=== PATIENT | female | born 1965 | race Caucasian/White ===

== ENCOUNTER 2017-12-13 18:10 | Emergency (ER) | END 2017-12-13 20:50 | disposition home or self-care (01) | DX: M54.41 Lumbago with sciatica, right side (principal); M54.42 Lumbago with sciatica, left side; F17.200 Nicotine dependence, unspecified, uncomplicated | CPT/HCPCS: 96372; 99283; J1100; J1885; J2360 ==

== ENCOUNTER 2018-01-01 13:47 | Emergency (ER) | payer BC ==
[~2018-01-01 13:47] MED LIST: DICL50TA PO; MEDR4PAK PO; ROBA750T PO
[2018-01-01 13:52] VITALS: BP 132/91; PULSE 92; RESP 19; TEMP 98.6; O2SAT 96
[2018-01-01] MEDS ORDERED: TRAM50TA PO (14:05)
[2018-01-01] MEDS ORDERED: SERO300T PO (14:06)
[2018-01-01] MEDS ORDERED: ROSU1TAB4 PO (14:06)
[2018-01-01] MEDS ORDERED: TRAZ50TA12 PO (14:06)
[2018-01-01] MEDS ORDERED: GABA100C4 PO (14:09)
--- NOTE | 2018-01-01 14:27 | PD ---
HPI Chief Complaint: Injury Time Seen by Provider: 14:02 Travel History International Travel<30 days: No Contact w/Intl Traveler<30days: No Traveled to known affect area: No History of Present Illness HPI 52-year-old female presents emergency department with right dorsal foot pain. Patient reportedly fell 2 days ago injuring her foot. She states the pain is progressively worsening and she is unable to ambulate without difficulty. Patient denies numbness or tingling. There are no open wounds or abrasions. Pain is 9 out of 10. Patient has been taking tramadol which she was prescribed earlier this month without much relief. She denies any other injury. She is allergic to codeine and sulfa. PFSH Past Medical History Arthritis: No Asthma: No Autoimmune Disease: No Bipolar Disorder: Yes Anxiety: Yes Depression: Yes Heart Rhythm Problems: No Cardiovascular Problems: No (See EMR) High Cholesterol: No Chemotherapy: No Chest Pain: No Congestive Heart Failure: No COPD: No Cerebrovascular Accident: No Diabetes: No (See EMR) Diminished Hearing: No Endocrine: Yes GERD: No Genitourinary: No Headaches: No (See EMR) Hypertension: Yes Immune Disorder: No Kidney Stones: No Musculoskeletal: No Neurologic: No Psychiatric: Yes (depression, alcohol abuse) Reproductive: No Respiratory: No Migraines: No Radiation Therapy: No Renal Failure: Yes Sickle Cell Disease: No Sleep Apnea: No Thyroid Disease: Yes Triglycerides - High: Yes Ulcer: No : 3 Para: 2 : 1 Past Surgical History Abdominal Surgery: No AICD: No Arteriovenous Shunt: No Cardiac Surgery: No Section: Yes Ear Surgery: No Endocrine Surgery: Yes (Hypothyroidism) Eye Surgery: No Genitourinary Surgery: No Gynecologic Surgery: No Insulin Pump: No Joint Replacement: No Oral Surgery: No Pacemaker: No Thoracic Surgery: No Tonsillectomy: Yes Social History Alcohol Use: Yes (up to 24pk beer daily) Tobacco Use: Yes (1 07/31 ppd) Substance Use: No Allergies-Medications (Allergen,Severity, Reaction): Coded Allergies: Sulfa (Sulfonamide Antibiotics) (Unverified Allergy, Severe, 01/01/18) codeine (Unverified Allergy, Severe, Itching, 01/01/18) Reported Meds & Prescriptions Reported Meds & Active Scripts Active Reported Gabapentin 100 Mg Cap 100 Mg PO TID Trazodone (Trazodone HCl) 50 Mg Tab 50 Mg PO HS Rosuvastatin (Rosuvastatin Calcium) 5 Mg Tab 5 Mg PO DAILY Seroquel (Quetiapine Fumarate) 300 Mg Tab 300 Mg PO DAILY Tramadol (Tramadol HCl) 50 Mg Tab 50 Mg PO Q4H PRN Review of Systems Except as stated in HPI: all other systems reviewed are Neg General / Constitutional: No: Fever Eyes: No: Visual changes HENT: No: Headaches Cardiovascular: No: Chest Pain or Discomfort Respiratory: No: Shortness of Breath Gastrointestinal: No: Abdominal Pain Genitourinary: No: Dysuria Musculoskeletal: Positive: Arthralgias, Limited ROM, Pain (See history of present illness) Skin: No Rash Neurologic: No: Weakness Psychiatric: No: Depression Endocrine: No: Polydipsia Hematologic/Lymphatic: No: Easy Bruising Physical Exam Narrative GENERAL: Patient appears in no acute distress. SKIN: Warm and dry. Normal color. Normal turgor. No ecchymosis. No open wound. No abrasions. HEAD: Atraumatic. Normocephalic. EYES: Pupils equal and round. No scleral icterus. No injection or drainage. ENT: No nasal bleeding or discharge. Mucous membranes pink and moist. Pharynx is clear. Airway is patent. NECK: Trachea midline. Supple. CARDIOVASCULAR: Regular rate and rhythm. RESPIRATORY: No accessory muscle use. Clear to auscultation. Breath sounds equal bilaterally. MUSCULOSKELETAL: Extremities without clubbing, cyanosis, or edema. No obvious deformities. Patient's right foot appears unremarkable. Patient complains of pain with palpation to the dorsal proximal foot, as well as with plantar flexion and dorsiflexion. Neurovascular exam is unremarkable. The right ankle is unremarkable. She has no significant calf pain with palpation. NEUROLOGICAL: Awake and alert. No obvious cranial nerve deficits. Motor grossly within normal limits. Five out of 5 muscle strength in the arms and legs. Normal speech. PSYCHIATRIC: Appropriate mood and affect; insight and judgment normal. Data Data Last Documented VS Vital Signs Date Time Temp Pulse Resp B/P (MAP) Pulse Ox O2 Delivery O2 Flow Rate FiO2 01/01/18 13:52 98.6 92 19 132/91 (105) 96 Orders Orders Foot, Complete ([id number]) (01/01/18 14:05) Ice/Cold Pack (01/01/18 14:05) Crutches (01/01/18 14:05) MDM Medical Decision Making Medical Screen Exam Complete: Yes Emergency Medical Condition: Yes Medical Record Reviewed: Yes Differential Diagnosis Right foot pain. Tenosynovitis. Fracture. Narrative Course X-ray of the right foot and ankle is obtained. Condition: Stable Ilya Waller Jan 01, 2018 14:27
--- NOTE | 2018-01-01 15:31 | RADRPT ---
EXAM DATE: 01/01/2018 3:11 PM EDT AGE/SEX: 52 years / Female INDICATIONS: Right foot pain after fall. CLINICAL DATA: This is the patient's initial encounter. Patient reports that signs and symptoms have been present for 1 day and indicates a pain score of 8/10. MEDICAL/SURGICAL HISTORY: None. None. COMPARISON: No prior [facility] exams available for comparison. FINDINGS: Bony structures are intact and in normal alignment. Osseous density is normal. Soft tissues are unre markable. No radiopaque foreign bodies seen. CONCLUSION: Negative examination Electronically signed by: Jared Gill MD 01/01/2018 3:30 PM EDT
[2018-01-01] MEDS ORDERED: MELO7.5T27 PO (15:43)
--- NOTE | 2018-01-01 15:48 | PD ---
Physical Exam Date Seen by Provider: Jan 01, 2018 Time Seen by Provider: 15:47 Narrative X-ray shows no acute process. Patient will be placed in crutches given meloxicam 7.5 mg twice daily #60. Patient to follow-up with her primary care physician tomorrow as scheduled. Data Data Last Documented VS Vital Signs Date Time Temp Pulse Resp B/P (MAP) Pulse Ox O2 Delivery O2 Flow Rate FiO2 01/01/18 13:52 98.6 92 19 132/91 (105) 96 Orders Orders Foot, Complete ([id number]) (01/01/18 14:05) Ice/Cold Pack (01/01/18 14:05) Crutches (01/01/18 14:05) Ed Discharge Order (01/01/18 15:45) [facility] Medical Record Reviewed: Yes Supervised Visit with DINESH: Yes Narrative Course X-ray shows no acute process. Patient will be placed in crutches given meloxicam 7.5 mg twice daily #60. Patient to follow-up with her primary care physician tomorrow as scheduled. Diagnosis Primary Impression: Tenosynovitis of foot and ankle Patient Instructions: Crutch Instructions (ED), General Instructions, Lower Extremity Tenosynovitis (DC) Additional Instruction: X-ray shows no acute process. Patient will be placed in crutches given meloxicam 7.5 mg twice daily #60. Patient to follow-up with her primary care physician tomorrow as scheduled. Med/Other Pt SpecificInfo: Prescription(s) given Scripts Meloxicam (Meloxicam) 7.5 Mg Tab 7.5 MG PO BID for Arthritis Pain, #60 TAB 0 Refills Prov: Jocelyne Palomo MD 01/01/18 Disposition: 01 DISCHARGE HOME Condition: Stable Ilya Waller Jan 01, 2018 15:48
== END 2018-01-01 16:20 | disposition home or self-care (01) ==
LOC: NEPK 13:47
DX: S93.601A Unspecified sprain of right foot, initial encounter (principal); W19.XXXA Unspecified fall, initial encounter; F31.9 Bipolar disorder, unspecified; F41.9 Anxiety disorder, unspecified; E03.9 Hypothyroidism, unspecified; I12.9 Hypertensive chronic kidney disease with stage 1 through stage 4 chronic kidney disease, or unspecified chronic kidney disease; N18.9 Chronic kidney disease, unspecified; F17.200 Nicotine dependence, unspecified, uncomplicated
CPT/HCPCS: 73630; 99283; E0113

== ENCOUNTER 2018-03-05 17:30 | Inpatient (IN) ==
[~2018-03-05 17:30] MED LIST changes: -DICL50TA PO; +Lidocaine PF 1% Inj 5 ML Syringe INFILTRATN ONE; -MEDR4PAK PO; -ROBA750T PO
[2018-03-05] MEDS ORDERED: Morphine Inj 4 MG/ML Vial IV.PUSH ONE (20:39)
[2018-03-05 20:59] LABS: Baso % (Auto) 0.3 % (0.0-2.0); Eos % (Auto) 0.1 % (0.0-4.0); Hematocrit 34.9 % (35.0-46.0); Hemoglobin 11.6 gm/dL (11.6-15.3); Lymph # (Auto) 0.7 th/mm3 (1.0-4.8); Lymph % (Auto) 12.3 % (9.0-44.0); Mean Corpuscular HGB Conc 33.1 % (32.0-36.0); Mean Corpuscular Hemoglobin 32.3 pg (27.0-34.0); Mean Corpuscular Volume 97.5 fL (80.0-100.0); Mono # (Auto) 0.5 th/mm3 (0.0-0.9); Mono % (Auto) 8.4 % (0.0-8.0); Neut # (Auto) 4.5 th/mm3 (1.8-7.7); Neut % (Auto) 78.9 % (16.0-70.0); Platelet Count 242 th/mm3 (150-450); Red Blood Count 3.58 mil/mm3 (4.00-5.30); White Blood Count 5.7 th/mm3 (4.0-11.0)
--- NOTE | 2018-03-05 21:01 | ED ---
HPI General Chief complaint: Extremity Injury, Lower Stated complaint: Sent by Dr Monte/Patient states broken leg Time Seen by Provider: 03/05/18 20:22 History of Present Illness HPI narrative: 53-year-old female presents to the emergency department sent by her orthopedic surgeon to be admitted for surgery tomorrow. Patient was seen in the ED 02/26/18 status post fall and diagnosed with a left tibia fracture. She was splinted and discharged at that time. She followed up in office with Dr. Monte today and he replaced her splint and instructed her to come to the ED for admission for surgery tomorrow. She complains of pain at the site of the fracture. She also complains of sciatic pain down her right leg which is chronic. She has not taken anything for pain so far today. She denies any chest pain, shortness of breath, abdominal pain, nausea, vomiting, diarrhea, numbness or tingling, weakness. No other complaints. PCP Dr. Win. Related Data Home Medications Medication Instructions Recorded Confirmed citalopram [Celexa] 20 mg PO DAILY 02/26/18 03/05/18 escitalopram oxalate [Lexapro] 20 mg PO DAILY 02/26/18 03/05/18 gabapentin 300 mg PO TID 02/26/18 03/05/18 quetiapine [Seroquel XR] 300 mg PO HS 02/26/18 03/05/18 temazepam 30 mg PO HS 02/26/18 03/05/18 tramadol 50 mg PO TID PRN 02/26/18 03/05/18 trazodone 50 mg PO DAILY 02/26/18 03/05/18 hydroxyzine pamoate 50 mg PO TID-QID PRN 03/05/18 03/05/18 rosuvastatin 20 mg PO DAILY 03/05/18 03/05/18 thyroid (pork) [[employer] Thyroid] 60 mg PO DAILY 03/05/18 03/05/18 Previous Rx's Medication Instructions Recorded walker #1 each 02/26/18 walker #1 each 02/26/18 Allergies Allergy/AdvReac Type Severity Reaction Status Date / Time codeine Allergy Severe Itching Unverified 01/01/18 14:02 meloxicam Allergy Unknown Itching, Verified 02/26/18 15:23 Generalized Sulfa (Sulfonamide Allergy Unknown Itching Unverified 02/26/18 15:23 Antibiotics) Review of Systems ROS: all other systems reviewed are negative [facility] Medical History Medical History Bipolar 1 disorder (Acute) Depression (Acute) PTSD (post-traumatic stress disorder) (Acute) Surgical History Surgical History History of (Acute) Social History Social History Substance History: No History of Abuse Second Hand Smoke Exposure: Yes Smoking Status: Current every day smoker Tobacco Type: Cigarettes How Often Do You Have a Drink Containing Alcohol: 2 to 3 times a week Recent Travel in [facility] [[email or web address] within the Last 8 Weeks: No Recent Out of Country Travel within the Last 8 Weeks: No Immunization History Tetanus Immunization: Unsure Exam Narrative Exam Narrative: GENERAL: Well-nourished and well-developed pleasant patient in no acute distress who is nontoxic appearing. SKIN: Warm and dry. HEAD: Normocephalic and atraumatic. EYES: No injection, drainage, or hyphema noted. PERRLA. EOMI. ENT: No nasal drainage noted. Oropharynx is clear and the TMs are normal with good landmarks. NECK: Supple and the trachea is midline. CARDIOVASCULAR: Regular rate and rhythm. RESPIRATORY: Breath sounds are equal bilaterally with no accessory muscle use, wheezing, rhonchi, or crackles. GASTROINTESTINAL: Abdomen is soft, non-tender, and nondistended. No hepatosplenomegaly. MUSCULOSKELETAL: Left leg splint in place. No obvious deformities, swelling, cyanosis, or ecchymosis is present throughout the upper and lower extremities. Patient has full range of motion in all other extremities without any signs of neurovascular compromise. Distal pulses are 2+ throughout. NEUROLOGICAL: Awake, alert, and oriented. Normal speech and gait. Cranial nerves are grossly intact. Course Initial Documented Vital Signs Temperature 98.7 F 03/05/18 17:48 Pulse Rate 95 H 03/05/18 17:48 Respiratory Rate 20 03/05/18 17:48 Blood Pressure 135/75 03/05/18 17:48 Pulse Oximetry 97 03/05/18 17:48 Last Documented Vital Signs Temperature 98.7 F 03/05/18 17:48 Pulse Rate 80 03/05/18 20:06 Respiratory Rate 20 03/05/18 20:06 Blood Pressure 126/72 03/05/18 20:06 Pulse Oximetry 94 L 03/05/18 20:06 Medical Decision Making MDM Narrative Medical decision making narrative: 53-year-old female presents to the emergency department at the instruction of her orthopedic surgeon. She was sent here for admission to have surgery on her left tibia fracture tomorrow. IV access is obtained, labs have been drawn and sent. Patient is placed on cardiac telemetry and pulse oximetry monitoring. Patient is administered morphine 4 mg IV and Zofran 4 mg IV. I spoke with Dr. Win who agrees to accept patient to his service. Labs show mild hypokalemia, 20 mEq orally ordered to replace. Chest x-ray shows right lower lobe pulmonary opacity, patient has no clinical evidence of pneumonia. EKG shows sinus rhythm with no ST elevations or depressions. Differential Diagnosis Differential Diagnosis: Fracture versus sprain versus contusion Lab Data Result diagrams: 03/05/18 20:30 03/05/18 20:30 Lab Results 03/05/18 03/05/18 03/05/18 Range/Units 20:30 20:30 20:30 WBC 5.7 (4.0-11.0) th/mm3 RBC 3.58 L (4.00-5.30) mil/mm3 Hgb 11.6 (11.6-15.3) gm/dL Hct 34.9 L (35.0-46.0) % MCV 97.5 (80.0-100.0) fL MCH 32.3 (27.0-34.0) pg MCHC 33.1 (32.0-36.0) % RDW 15.0 (11.6-17.2) % Plt Count 242 (150-450) th/mm3 MPV 9.0 (7.0-11.0) fL Neut % (Auto) 78.9 H (16.0-70.0) % Lymph % (Auto) 12.3 (9.0-44.0) % [place] % (Auto) 8.4 H (0.0-8.0) % Eos % (Auto) 0.1 (0.0-4.0) % Baso % (Auto) 0.3 (0.0-2.0) % Neut # (Auto) 4.5 (1.8-7.7) th/mm3 Lymph # (Auto) 0.7 L (1.0-4.8) th/mm3 [place] # (Auto) 0.5 (0.0-0.9) th/mm3 Eos # (Auto) 0.0 (0.0-0.4) th/mm3 Baso # (Auto) 0.0 (0.0-0.2) th/mm3 WBC Differential . Differential Comment Auto diff final PT 9.9 (9.8-11.6) sec INR 1.0 Ratio APTT (24.3-30.1) sec Sodium 140 (136-145) meq/L Potassium 3.1 L (3.5-5.1) meq/L Chloride 100 (98-107) meq/L Carbon Dioxide 32.1 H (21.0-32.0) meq/L Anion Gap 8 (5-15) meq/L BUN 2 L (7-18) mg/dL Creatinine 0.63 (0.50-1.00) mg/dL Estimated GFR Greater than 89 (>89) mL/min Random Glucose 93 (74-106) mg/dL Calcium 9.2 (8.5-10.1) mg/dL Total Bilirubin 0.4 (0.2-1.0) mg/dL AST 51 H (15-37) U/L ALT 31 (10-53) U/L Alkaline Phosphatase 110 (45-117) U/L Total Protein 6.7 (6.4-8.2) g/dL Albumin 3.1 L (3.4-5.0) g/dL /02/13 Range/Units 20:30 WBC (4.0-11.0) th/mm3 RBC (4.00-5.30) mil/mm3 Hgb (11.6-15.3) gm/dL Hct (35.0-46.0) % MCV (80.0-100.0) fL MCH (27.0-34.0) pg MCHC (32.0-36.0) % RDW (11.6-17.2) % Plt Count (150-450) th/mm3 MPV (7.0-11.0) fL Neut % (Auto) (16.0-70.0) % Lymph % (Auto) (9.0-44.0) % [place] % (Auto) (0.0-8.0) % Eos % (Auto) (0.0-4.0) % Baso % (Auto) (0.0-2.0) % Neut # (Auto) (1.8-7.7) th/mm3 Lymph # (Auto) (1.0-4.8) th/mm3 [place] # (Auto) (0.0-0.9) th/mm3 Eos # (Auto) (0.0-0.4) th/mm3 Baso # (Auto) (0.0-0.2) th/mm3 WBC Differential Differential Comment PT (9.8-11.6) sec INR Ratio APTT 25.7 (24.3-30.1) sec Sodium (136-145) meq/L Potassium (3.5-5.1) meq/L Chloride (98-107) meq/L Carbon Dioxide (21.0-32.0) meq/L Anion Gap (5-15) meq/L BUN (7-18) mg/dL Creatinine (0.50-1.00) mg/dL Estimated GFR (>89) mL/min Random Glucose (74-106) mg/dL Calcium (8.5-10.1) mg/dL Total Bilirubin (0.2-1.0) mg/dL AST (15-37) U/L ALT (10-53) U/L Alkaline Phosphatase (45-117) U/L Total Protein (6.4-8.2) g/dL Albumin (3.4-5.0) g/dL Imaging Data Radiologist's impression: Chest X-Ray 03/05/18 20:39 CONCLUSION: Right lower lobe pulmonary opacity which may represent pneumonia in the proper clinical setting. Mass not excludable. CT of the chest, preferably with intravenous contrast is recommended. Discharge Plan Discharge Disposition Patient Disposition: 30 Still Patient Discharge Details Diagnosis: Closed tibia fracture Physicians Team ED Provider: SHELLEY Mei ED Midlevel Provider: Renu Marley Primary Care Provider: Flavio Win Attending Provider: Flavio Win Status ED Status: Admitted Patient
[2018-03-05 21:06] LABS: Prothrombin Time 9.9 sec (9.8-11.6)
--- NOTE | 2018-03-05 21:13 | XR ---
EXAM DATE: 03/05/2018 9:00 PM EDT AGE/SEX: 53 years / Female INDICATIONS: Evaluate for pneumothorax, pneumonia or communicable diseases. Pre-op for left tibia champagne rgery. CLINICAL DATA: This is the patient's initial encounter. Patient reports that signs and symptoms have been present for 1 day and indicates a pain score of 0/10. MEDICAL/SURGICAL HISTORY: None. None. COMPARISON: No prior exams available for comparison. FINDINGS: Focal pulmonary opacity seen right lung base, probably in the lower lobe and most likely infiltrate. Lungs otherwise appear clear. No pleural effusion. No pneumothorax. Heart size normal. CONCLUSION: Right lower lobe pulmonary opacity which may represent pneumonia in the proper clinical setting. Mass not excludable. CT of the chest, preferably with intravenous contrast is recommended. Electronically signed by: Bonifacio Nguyen MD 03/05/2018 9:12 PM EDT
[2018-03-05 21:15] LABS: Alanine Aminotransferase 31 U/L (10-53); Albumin 3.1 g/dL (3.4-5.0); Anion Gap 8 meq/L (5-15); Aspartate Aminotransferase 51 U/L (15-37); Blood Urea Nitrogen 2 mg/dL (7-18); Calcium 9.2 mg/dL (8.5-10.1); Carbon Dioxide 32.1 meq/L (21.0-32.0); Chloride 100 meq/L (98-107); Glomerular Filtration Rate Greater Than 89 mL/min (>89); Glucose,Random 93 mg/dL (74-106); Potassium 3.1 meq/L (3.5-5.1); Sodium 140 meq/L (136-145)
[2018-03-05 21:18] LABS: Alkaline Phosphatase 110 U/L (45-117); Total Protein 6.7 g/dL (6.4-8.2)
[2018-03-05 22:00] LABS: Amorphous Sediment,Urine Rare /hpf; Bacteria,Urine Few /hpf; Bilirubin,Urine Negative (Negative); Clarity,Urine Hazy (Clear); Color,Urine Yellow (Yellw/Straw); Glucose,Urine (UA) Negative (Negative); Leukocyte Esterase,Urine Large (Negative); Nitrite,Urine Negative (Negative); Specific Gravity,Urine 1.001 (1.002-1.035); Squamous Epithelial Cell,Urine 1 /hpf (0-5)
[2018-03-05] MEDS: Potassium Bicarbonate 25 MEQ Effervescent Tablet PO SCH (23:33)
--- NOTE | 2018-03-06 00:08 | CT ---
EXAM DATE: 03/05/2018 11:59 PM EDT AGE/SEX: 53 years / Female INDICATIONS: Abnormal chest x-ray. CLINICAL DATA: This is the patient's initial encounter. Patient reports that signs and symptoms have been present for 1 day and indicates a pain score of 0/10. MEDICAL/SURGICAL HISTORY: None. None. RADIATION DOSE: 7.31 CTDI (mGy) COMPARISON: C, CHEST 1V SINGLE AP, 03/05/2018. . TECHNIQUE: Multiple contiguous axial images were obtained through the chest during bolus infusion of 70 ml Omnipaque 350 (iohexol) nonionic water-soluble contrast as a single exam dose. Images were obtained in suspended respiration using multiple row detector helical technique. Using automated exp osure control and adjustment of the mA and/or kV according to patient size, radiation dose was kept a s low as reasonably achievable to obtain optimal diagnostic quality images. DICOM format image data is available electronically for review and comparison. FINDINGS: There is no adenopathy or aneurysm. No pleural or pericardial effusions are seen. The adrenal glands are normal in appearance. The osseous structures are intact. Review of lung windows demonstrate perip heral consolidative opacity in the right lower lobe with air bronchogram formation. Part of this opac ity represents an area of atelectasis. Mild dependent atelectasis at the left lung base is also seen. CONCLUSION: 1. Right lower lobe consolidation and atelectasis. No obvious mass. 2. Follow-up CT examination in 6 months is recommended to ensure resolution of this finding. Electronically signed by: Lázaro Webster MD 03/06/2018 12:06 AM EDT
--- NOTE | 2018-03-06 07:17 | P.HPFP ---
History of Present Illness Service: family medicine Primary Care Physician: Flavio Win DO History of Present Illness: Sent to [facility] from ortho for fractured Tibia - Diagnosis (1) Closed tibia fracture (2) Pneumonia (3) Tobacco abuse (4) HLD (hyperlipidemia) (5) Hypothyroid Inpatient Certification: I certify that the inpatient services were ordered in accordance with Medicare regulations governing the order. This includes certification that hospital inpatient services are reasonable and necessary and in the case of services not specified as inpatient-only under 42 CFR 419.22(n), that they are appropriately provided as inpatient services in accordance to with the 2-midnight benchmark under 43 CFR 412.3(e) 3 Estimated Total Length of Stay (Days): 3 Plans for Post Hospital Care: Home [facility] - History History Provided By: Patient - Medical History Medical History: Medical History (Last Updated 02/26/18 @ 13:48 by Evelyne Guerrero) Bipolar 1 disorder Depression PTSD (post-traumatic stress disorder) - Surgical History Surgical History: Surgical History (Last Updated 02/26/18 @ 13:48 by Evelyne Guerrero) History of - Tobacco History Second Hand Smoke Exposure: Yes Tobacco Use In Past 30 Days: Yes Smoking Status: Current every day smoker Tobacco Type: Cigarettes - Alcohol History How Often Do You Have a Drink Containing Alcohol: 2 to 3 times a week - Substance Use History Substance History: No History of Abuse - Travel History Recent Travel in the [place] Within the Last 8 Weeks: No Recent Travel Out of the Country Within the Last 8 Weeks: No - Immunization History Tetanus Immunization: Unsure Hx Influenza Vaccine This Season: No Medications and Allergies Active Medications: Active Medications Albuterol (Duoneb Neb (Abhishek)) 1 ampul NEB Q6HR NEB ABHISHEK Last Admin: 03/06/18 03:40 Dose: 1 ampul Atorvastatin Calcium (Lipitor) 40 mg PO DAILY ABHISHEK Citalopram Hydrobromide (Celexa) 20 mg PO DAILY ABHISHEK Gabapentin (Neurontin) 300 mg PO TID ABHISHEK Ceftriaxone Sodium 1,000 mg/ (Sodium Chloride) 100 mls @ 200 mls/hr IV.SIG Q24H ABHISHEK Last Infusion: 03/06/18 03:46 Dose: Infused Potassium Bicarbonate (Effer-K) 50 meq PO DAILY ABHISHEK Last Admin: 03/05/18 23:33 Dose: 50 meq Quetiapine Fumarate (Seroquel) 300 mg PO HS ABHISHEK Temazepam (Restoril) 30 mg PO HS ABHISHEK Thyroid ([place] Thyroid) 60 mg PO DAILY ABHISHEK Tramadol HCl (Ultram) 50 mg PO TID PRN PRN Reason: PAIN SCALE 1 - 10 Last Admin: 03/05/18 23:32 Dose: 50 mg Allergies Allergy/AdvReac Type Severity Reaction Status Date / Time codeine Allergy Severe Itching Verified 03/05/18 23:32 meloxicam Allergy Unknown Itching, Verified 02/26/18 15:23 Generalized Sulfa (Sulfonamide Allergy Unknown Itching Verified 03/05/18 23:32 Antibiotics) Home Medications Medication Instructions Recorded Confirmed Type citalopram [Celexa] 20 mg PO DAILY 02/26/18 03/05/18 History escitalopram oxalate [Lexapro] 20 mg PO DAILY 02/26/18 03/05/18 History gabapentin 300 mg PO TID 02/26/18 03/05/18 History quetiapine [Seroquel XR] 300 mg PO HS 02/26/18 03/05/18 History temazepam 30 mg PO HS 02/26/18 03/05/18 History tramadol 50 mg PO TID PRN 02/26/18 03/05/18 History trazodone 50 mg PO DAILY 02/26/18 03/05/18 History hydroxyzine pamoate 50 mg PO TID-QID PRN 03/05/18 03/05/18 History rosuvastatin 20 mg PO DAILY 03/05/18 03/05/18 History thyroid (pork) [COLOR BUFFER Thyroid] 60 mg PO DAILY 03/05/18 03/05/18 History Exam Vital signs: Vital Signs 03/05/18 17:48 03/05/18 20:06 03/06/18 00:00 Temperature 98.7 F 98.0 F Pulse Rate 95 H 80 81 Respiratory Rate 20 20 18 Blood Pressure 135/75 126/72 122/67 Pulse Oximetry 97 94 L 95 03/06/18 03:41 03/06/18 04:00 Temperature 98.1 F Pulse Rate 72 79 Respiratory Rate 18 18 Blood Pressure 108/61 Pulse Oximetry 94 L Intake & Output 03/05/18 03/06/18 03/06/18 18:59 06:59 18:59 Intake Total 100 / 100 Balance 100 / 100 Weight 67.132 kg 67.261 kg Intake: IV 100 / 100 Rocephin Inj 1,000 MG In NS Inj 100 / 100 100 ML @ 200 mls/hr IV.SIG Q24H ABHISHEK Rx#:[id number] Other: # Voids 1 Weight On Admission 67.261 kg - Constitutional no acute distress - Routine HEENT Exam Head: Present: normocephalic Eye: Present: PERRL ENT: Present: mucous membranes moist - Routine Neck Exam Present: supple - Routine Respiratory Exam Present: CTA bilaterally - Routine Cardiovascular Exam Present: RRR, S1, S2 - Routine Abdominal Exam Present: soft, normoactive bowel sounds - Routine Extremities Exam Comments: Left lower extremity with splint - Routine Skin Exam Present: intact - Routine Neurological Exam Present: alert, oriented X3 - Routine Psychiatric Exam Present: normal affect, cooperative Results - Labs Result diagrams: 03/05/18 20:30 03/05/18 20:30 Abnormal lab results 03/05/18 03/05/18 03/05/18 Range/Units 19:20 20:30 20:30 RBC 3.58 L (4.00-5.30) mil/mm3 Hct 34.9 L (35.0-46.0) % Neut % (Auto) 78.9 H (16.0-70.0) % [place] % (Auto) 8.4 H (0.0-8.0) % Lymph # (Auto) 0.7 L (1.0-4.8) th/mm3 Potassium 3.1 L (3.5-5.1) meq/L Carbon Dioxide 32.1 H (21.0-32.0) meq/L BUN 2 L (7-18) mg/dL AST 51 H (15-37) U/L Albumin 3.1 L (3.4-5.0) g/dL Urine Clarity Hazy H (Clear) Ur Specific [place] 1.001 L (1.002-1.035) Urine Occult Blood Small H (Negative) Ur Leukocyte Esterase Large H (Negative) Urine WBC 14 H (0-5) /hpf Amorphous Sediment Rare H (None) /hpf Urine Bacteria Few H (None) /hpf Short CBC 03/05/18 Range/Units 20:30 WBC 5.7 (4.0-11.0) th/mm3 Hgb 11.6 (11.6-15.3) gm/dL Hct 34.9 L (35.0-46.0) % Plt Count 242 (150-450) th/mm3 BMP 03/05/18 20:30 Sodium 140 Potassium 3.1 L Chloride 100 Carbon Dioxide 32.1 H BUN 2 L Creatinine 0.63 Calcium 9.2 Liver Function 03/05/18 Range/Units 20:30 Total Bilirubin 0.4 (0.2-1.0) mg/dL AST 51 H (15-37) U/L ALT 31 (10-53) U/L Alkaline Phosphatase 110 (45-117) U/L Albumin 3.1 L (3.4-5.0) g/dL Urine 03/05/18 Range/Units 19:20 Urine Color Yellow (Yellw/Straw) Urine Clarity Hazy H (Clear) Urine pH 7.0 (5.0-8.5) Ur Specific [place] 1.001 L (1.002-1.035) Urine Protein Negative (Neg-Trace) mg/dL Urine Glucose (UA) Negative (Negative) mg/dL - Imaging Impressions Chest CT 03/05/18 00:00 CONCLUSION: 1. Right lower lobe consolidation and atelectasis. No obvious mass. 2. Follow-up CT examination in 6 months is recommended to ensure resolution of this finding. Chest X-Ray 03/05/18 20:39 CONCLUSION: Right lower lobe pulmonary opacity which may represent pneumonia in the proper clinical setting. Mass not excludable. CT of the chest, preferably with intravenous contrast is recommended. Caprini VTE Risk Assessment Caprini VTE Risk Assessment: No/Low Risk (score <= 1) Caprini Risk Assessment Model: Point Value = 1 Point Value = 2 Point Value = 3 Point Value = 5 Age 41-60 Minor surgery BMI > 25 kg/m2 Swollen legs Varicose veins or History of unexplained or recurrent spontaneous Oral contraceptives or hormone replacement Sepsis (< 1 month) Serious lung disease, including pneumonia (< 1 month) Abnormal pulmonary function Acute myocardial infarction Congestive heart failure (< 1 month) History of inflammatory bowel disease Medical patient at bed rest Age 61-74 Arthroscopic surgery Major open surgery (> 45 min) Laparoscopic surgery (> 45 min) Malignancy Confined to bed (> 72 hours) Immobilizing plaster cast Central venous access Age >= 75 History of VTE Family history of VTE Factor V Leiden Prothrombin [id number] Lupus anticoagulant Anticardiolipin antibodies Elevated serum homocysteine Heparin-induced thrombocytopenia Other congenital or acquired thrombophilia Stroke (< 1 month) Elective arthroplasty Hip, pelvis, or leg fracture Acute spinal cord injury (< 1 month) Prophylaxis Regimen: Total Risk Factor Score Risk Level Prophylaxis Regimen 0-1 Low Early ambulation 2 Moderate Order ONE of the following: *Sequential Compression Device (SCD) *Heparin 5000 units SQ BID 3-4 Higher Order ONE of the following medications: *Heparin 5000 units SQ TID *Enoxaparin/Lovenox 40 mg SQ daily (WT < 150 kg, CrCl > 30 mL/min) *Enoxaparin/Lovenox 30 mg SQ daily (WT < 150 kg, CrCl > 10-29 mL/min) *Enoxaparin/Lovenox 30 mg SQ BID (WT < 150 kg, CrCl > 30 mL/min) AND/OR *Sequential Compression Device (SCD) 5 or more Highest Order ONE of the following medications: *Heparin 5000 units SQ TID (Preferred with Epidurals) *Enoxaparin/Lovenox 40 mg SQ daily (WT < 150 kg, CrCl > 30 mL/min) *Enoxaparin/Lovenox 30 mg SQ daily (WT < 150 kg, CrCl > 10-29 mL/min) *Enoxaparin/Lovenox 30 mg SQ BID (WT < 150 kg, CrCl > 30 mL/min) AND *Sequential Compression Device (SCD) Assessment and Plan - Assessment (1) Closed tibia fracture Code(s): S82.209A - Unspecified fracture of shaft of unspecified tibia, initial encounter for closed fracture Status: Acute Plan: Sent by ortho for tentative surgery today NPO (2) Pneumonia Code(s): J18.9 - Pneumonia, unspecified organism Status: Acute Plan: CT chest shows opacities, with 3 month fu recommended. She is afebrile, denies Sob, will get Abg's. Sat's maintained on room air. Pulmonary consulted (3) Tobacco abuse Code(s): Z72.0 - Tobacco use Status: Acute Plan: Requesting nicotine patch (4) HLD (hyperlipidemia) Code(s): E78.5 - Hyperlipidemia, unspecified Status: Acute Plan: Cont home meds (5) Hypothyroid Code(s): E03.9 - Hypothyroidism, unspecified Status: Acute Plan: Cont home medications. H&P: Quality - VTE Deep Vein Thrombosis/Pulmonary Embolism Present on Admission: No (1) Closed tibia fracture Qualifiers: Encounter type: subsequent encounter Tibia location: distal Fracture morphology: unspecified fracture morphology Laterality: left Fracture healing : with delayed healing Qualified Code(s): S82.302G - Unspecified fracture of lower end of left tibia, subsequent encounter for closed fracture with delayed healing
[2018-03-06 07:37] LABS: Baso % (Auto) 0.4 % (0.0-2.0); Eos % (Auto) 0.3 % (0.0-4.0); Hematocrit 31.4 % (35.0-46.0); Hemoglobin 10.6 gm/dL (11.6-15.3); Lymph # (Auto) 1.1 th/mm3 (1.0-4.8); Lymph % (Auto) 27.4 % (9.0-44.0); Mean Corpuscular HGB Conc 33.7 % (32.0-36.0); Mean Corpuscular Hemoglobin 32.8 pg (27.0-34.0); Mean Corpuscular Volume 97.2 fL (80.0-100.0); Mean Platelet Volume 8.1 fL (7.0-11.0); Mono # (Auto) 0.5 th/mm3 (0.0-0.9); Mono % (Auto) 12.5 % (0.0-8.0); Neut # (Auto) 2.3 th/mm3 (1.8-7.7); Neut % (Auto) 59.4 % (16.0-70.0); Platelet Count 245 th/mm3 (150-450); Red Blood Count 3.22 mil/mm3 (4.00-5.30); Red Cell Distribution Width 15.3 % (11.6-17.2); White Blood Count 3.9 th/mm3 (4.0-11.0)
[2018-03-06 08:27] LABS: Anion Gap 4 meq/L (5-15); Blood Urea Nitrogen 3 mg/dL (7-18); Calcium 8.7 mg/dL (8.5-10.1); Carbon Dioxide 34.8 meq/L (21.0-32.0); Chloride 105 meq/L (98-107); Glomerular Filtration Rate Greater Than 89 mL/min (>89); Glucose,Random 82 mg/dL (74-106); Potassium 4.5 meq/L (3.5-5.1); Sodium 144 meq/L (136-145)
[2018-03-06 08:29] LABS: ABG Base Excess 7.2 mmol/L (-2-2); ABG PCO2 48 mmHg (38-42); ABG PO2 60 mmHg (61-120)
[2018-03-06] MEDS: Potassium Bicarbonate 25 MEQ Effervescent Tablet PO SCH (10:32)
[2018-03-06] MEDS: Thyroid 60 MG Tablet PO SCH (10:32)
[2018-03-06] MEDS: Gabapentin 300 MG Capsule PO SCH ×3 (10:32→17:49)
[2018-03-06] MEDS: Citalopram 20 MG Tablet PO SCH (10:32)
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
[2018-03-06] MEDS: Sod Chloride 0.9% Inj 1,000 ML IV.SIG SCH (14:42)
[2018-03-06] MEDS: Temazepam 15 MG Capsule PO SCH (22:03)
--- NOTE | 2018-03-06 22:26 | ECG ---
Date Performed: 03/05/2018 Time Performed: 21:25:55 PTAGE: 53 years EKG: UNCERTAIN REGULAR RHYTHM RIGHT BUNDLE BRANCH BLOCK ABNORMAL ECG PREVIOUS TRACING : 02/26/2018 18.02 Since the previous tracing, no significant change noted DOCTOR: Evelio Sarkar Interpretating Date/Time 03/06/2018 22:24:34
--- NOTE | 2018-03-07 07:59 | P.PNOP ---
Subjective Interval history: Resting comfortably in bed. Left leg in splint. No other complaints <Reginaldo Macdonald Artur Reinier Filed: 03/07/18 07:56> Physical Exam Vital signs: Vital Signs 03/06/18 07:57 03/06/18 08:00 03/06/18 09:30 Temperature 97 F L Pulse Rate 82 77 Respiratory Rate 20 18 Blood Pressure 92/52 L 111/58 L Pulse Oximetry 03/06/18 12:00 03/06/18 15:08 03/06/18 16:00 Temperature 99 F 98.3 F Pulse Rate 84 84 93 H Respiratory Rate 18 18 18 Blood Pressure 93/55 L 103/55 L Pulse Oximetry 94 L 03/06/18 20:00 03/06/18 21:07 03/06/18 21:08 Temperature 98.2 F Pulse Rate 79 93 H Respiratory Rate 21 20 Blood Pressure 165/60 H Pulse Oximetry 98 94 L 03/07/18 00:00 03/07/18 03:55 03/07/18 04:00 Temperature 96.7 F L 96.7 F L Pulse Rate 87 68 87 Respiratory Rate 20 14 20 Blood Pressure 109/57 L 142/78 H Pulse Oximetry 96 97 Intake & Output 03/06/18 03/07/18 03/07/18 18:59 06:59 18:59 Intake Total 340 / 340 480 / 480 Balance 340 / 340 480 / 480 Intake: Oral 340 / 340 480 / 480 Other: # Voids 3 4 Date of Last Bowel Movement 03/06/18 # Bowel Movements 1 Narrative: Left lower extremity: No pain with hip or knee range of motion. Short leg splint intact. Distal pulses intact. Is able to move all toes. Good capillary refill - Constitutional no acute distress <TorresReginaldo Artur Reinier Filed: 03/07/18 07:56> Vital signs: Vital Signs 03/06/18 09:30 03/06/18 12:00 03/06/18 15:08 Temperature 99 F Pulse Rate 84 84 Respiratory Rate 18 18 Blood Pressure 111/58 L 93/55 L Pulse Oximetry 94 L 03/06/18 16:00 03/06/18 20:00 03/06/18 21:07 Temperature 98.3 F 98.2 F Pulse Rate 93 H 79 93 H Respiratory Rate 18 21 20 Blood Pressure 103/55 L 165/60 H Pulse Oximetry 98 03/06/18 21:08 03/07/18 00:00 03/07/18 03:55 Temperature 96.7 F L Pulse Rate 87 68 Respiratory Rate 20 14 Blood Pressure 109/57 L Pulse Oximetry 94 L 96 03/07/18 04:00 03/07/18 08:00 Temperature 96.7 F L 98.8 F Pulse Rate 87 78 Respiratory Rate 20 16 Blood Pressure 142/78 H 108/63 Pulse Oximetry 97 100 Intake & Output 03/06/18 03/07/18 03/07/18 18:59 06:59 18:59 Intake Total 340 / 340 480 / 480 Balance 340 / 340 480 / 480 Intake: Oral 340 / 340 480 / 480 Other: # Voids 3 4 Date of Last Bowel Movement 03/06/18 03/06/18 # Bowel Movements 1 <Bhavesh Cornejo - Last Filed: 03/07/18 09:01> Results - Labs CBC & Chem 7: 03/06/18 06:45 03/06/18 06:45 Laboratory Results - last 24 hr 03/06/18 03/06/18 06:45 08:22 Puncture Site Right radial Patient Temperature 98.6 O2 Saturation 87 L* ABG pH 7.43 H ABG pCO2 48 H ABG pO2 60 L ABG HCO3 32 H ABG O2 Content 12.0 ABG Base Excess 7.2 H ABG Methemoglobin 1.2 Mark Test Present Hemoglobin 9.7 L Carboxyhemoglobin 2.4 O2 Delivery Device Drake air Inspired O2 21 Critical Value Yes Sodium 144 Potassium 4.5 D Chloride 105 Carbon Dioxide 34.8 H Anion Gap 4 L BUN 3 L Creatinine 0.57 Estimated GFR Greater than 89 Random Glucose 82 Calcium 8.7 Microbiology 03/05/18 19:20 Clean Catch Urine Urine Culture - Preliminary No growth in 24 hours <Reginaldo Macdonald - Last Filed: 03/07/18 07:56> - Labs CBC & Chem 7: 03/06/18 06:45 03/06/18 06:45 Microbiology 03/05/18 19:20 Clean Catch Urine Urine Culture - Preliminary No growth in 24 hours <Bhavesh Cornejo - Last Filed: 03/07/18 09:01> Assessment and Plan - Assessment and Plan Left spiral tibial shaft fracture N.p.o. Maintain splint until surgery Surgery this morning with Dr. Bolivar for intramedullary hank fixation of left tibia Sign consents <Reginaldo Macdonald - Last Filed: 03/07/18 07:56> - Assessment and Plan [facility] Prescription Drug Monitoring Database has been queried and verified prior to prescribing the controlled substance. Acute pain exception. This patient has normal, predicted, physiological, and time limited response to an adverse mechanical stimulus associated with surgery, trauma, or acute illness as described in my notes. There is a lack of alternative treatment options other than to include the prescribed narcotic treatment for this condition. <Bhavesh Cornejo - Last Filed: 03/07/18 09:01>
[2018-03-07] MEDS ORDERED: HYDROmorphone PF Inj 2 MG/ML Vial ONE (08:29)
[2018-03-07] MEDS: Thyroid 60 MG Tablet PO SCH (08:31)
[2018-03-07] MEDS: Gabapentin 300 MG Capsule PO SCH ×3 (08:31→18:02)
[2018-03-07] MEDS: Citalopram 20 MG Tablet PO SCH (08:31)
[2018-03-07] MEDS: Sod Chloride 0.9% Inj 1,000 ML IV.SIG SCH ×3 (08:31→22:53)
[2018-03-07] MEDS: Potassium Bicarbonate 25 MEQ Effervescent Tablet PO SCH (08:32)
--- NOTE | 2018-03-07 08:49 | P.PNFP ---
Subjective Interval history: Seen briefly on way to OR Prashanth MONCADA, SOB Nervous about pending surgery Results - Labs Result diagrams: 03/06/18 06:45 03/06/18 06:45 03/06/18 08:22 ABG pH 7.43 H ABG pCO2 48 H ABG pO2 60 L ABG HCO3 32 H ABG O2 Content 12.0 ABG Base Excess 7.2 H ABG Methemoglobin 1.2 Physical Exam Vital signs: Vital Signs 03/06/18 09:30 03/06/18 12:00 03/06/18 15:08 Temperature 99 F Pulse Rate 84 84 Respiratory Rate 18 18 Blood Pressure 111/58 L 93/55 L Pulse Oximetry 94 L 03/06/18 16:00 03/06/18 20:00 03/06/18 21:07 Temperature 98.3 F 98.2 F Pulse Rate 93 H 79 93 H Respiratory Rate 18 21 20 Blood Pressure 103/55 L 165/60 H Pulse Oximetry 98 03/06/18 21:08 03/07/18 00:00 03/07/18 03:55 Temperature 96.7 F L Pulse Rate 87 68 Respiratory Rate 20 14 Blood Pressure 109/57 L Pulse Oximetry 94 L 96 03/07/18 04:00 Temperature 96.7 F L Pulse Rate 87 Respiratory Rate 20 Blood Pressure 142/78 H Pulse Oximetry 97 Intake & Output 03/06/18 03/07/18 03/07/18 18:59 06:59 18:59 Intake Total 340 / 340 480 / 480 Balance 340 / 340 480 / 480 Intake: Oral 340 / 340 480 / 480 Other: # Voids 3 4 Date of Last Bowel Movement 03/06/18 # Bowel Movements 1 - Constitutional no acute distress - Routine HEENT Exam Head: Present: normocephalic Eye: Present: PERRL ENT: Present: mucous membranes moist - Routine Neck Exam Present: supple, full ROM - Routine Respiratory Exam Present: CTA bilaterally - Routine Cardiovascular Exam Present: S1, S2 - Routine Abdominal Exam Present: soft, normoactive bowel sounds - Routine Extremities Exam Comments: splint to LLE - Routine Skin Exam Present: intact - Routine Neurological Exam Present: alert, oriented X3 - Routine Psychiatric Exam Present: cooperative Assessment and Plan - Assessment (1) Closed tibia fracture Code(s): S82.209A - Unspecified fracture of shaft of unspecified tibia, initial encounter for closed fracture Status: Acute Plan: Sent by ortho for tentative surgery today NPO (2) Pneumonia Code(s): J18.9 - Pneumonia, unspecified organism Status: Acute Plan: CT chest shows opacities, with 3 month fu recommended. She is afebrile, denies Sob, will get Abg's. Sat's maintained on room air. Pulmonary consulted (3) Tobacco abuse Code(s): Z72.0 - Tobacco use Status: Acute Plan: Requesting nicotine patch (4) HLD (hyperlipidemia) Code(s): E78.5 - Hyperlipidemia, unspecified Status: Acute Plan: Cont home meds (5) Hypothyroid Code(s): E03.9 - Hypothyroidism, unspecified Status: Acute Plan: Cont home medications. - Assessment and Plan 03/07/18 VSS afebrile, Surgery delayed yesterday related to Abnormal ABG. PFT obtained, Pulmonary consulted. See on way to OR this am Report uneventful night. (1) Closed tibia fracture Qualifiers: Encounter type: subsequent encounter Tibia location: distal Fracture morphology: unspecified fracture morphology Laterality: left Fracture healing : with delayed healing Qualified Code(s): S82.302G - Unspecified fracture of lower end of left tibia, subsequent encounter for closed fracture with delayed healing
[2018-03-07] MEDS ORDERED: Bisacodyl 10 MG Supp RECTAL PRN (09:37)
[2018-03-07] MEDS ORDERED: Post-op Orders (for Pharmacy) OTHER STA (09:37)
--- NOTE | 2018-03-07 09:44 | P.OP ---
- Preoperative Diagnosis (1) Closed tibia fracture Date of procedure: 03/07/18 Procedure: Left tibia reduction and intramedullary nail fixation Anesthesia: GETA Surgeon: Tigre Villa MD Mate Fishing Vessel: ESTEBAN Braxton PA-C The surgical procedure was assisted by my physician internal medicine physician assistant. My P.A. presence was necessary throughout this case for the manipulation and positioning of the surgical extremity. My P.A. was assisting me throughout the duration of this procedure. The skill set of a physician internal medicine physician assistant was medically necessary to complete this procedure. During the surgical case the surgical aides teacher was working at the back table and the physician internal medicine physician assistant was directly assisting me. Operation and Findings: Implants: ITS 9 x 345 mm tibial nail Plan of activity: Toe-touch weightbearing Patient was seen and examined preoperatively. An informed consent was obtained from patient after detailed discussion of risk and benefits. Risks of surgery include bleeding, infection, painful hardware, nonunion, malunion, leg length discrepancy, need for hardware removal, and medical complications associated with anesthesia including blood clots, stroke, heart attack, and were discussed. Operative site was marked. Patient was brought to the operating room placed on or table. Patient received IV antibiotics and was given IV sedation GETA. Operative leg was prepped with alcohol Hibiclens and draped in usual sterile fashion. Timeout procedure was performed Procedure began with reduction of fracture. 2 small incisions were made around the fracture site. A percutaneous clamp was placed. Traction was applied. Fracture was reduced. There was comminution of the fracture. The fracture reduced and excellent alignment was achieved. Fracture clamp was used to aid in reduction. Next a 3 cm incision was made proximal to the patella. Quadriceps tendon was split in line with fibers. Cannulas were placed in the patellofemoral joint to protect the articular surface at all times. A guidepin was placed into the tibia and advanced in the tibial canal. Fluoroscopy was used to confirm appropriate guidepin placement. An opening reamer was used to open the tibial canal. A ball-tipped guidewire was advanced down the tibial canal. Guidepin was passed across the fracture site into the center of the distal tibia. Fluoroscopy confirmed guidepin placement. The nail length was now measured. The fracture was now held in a reduced position and the canal was reamed. The canal was reamed up to appropriate size. A tibia nail was now selected. Next the nail was fully seated. Using perfect [place] technique 4 distal interlocking screws were placed. Using the insertion handle as a guide 2 proximal interlocking screws were placed. Fluoroscopy confirmed excellent of fracture with well-placed hardware. Incisions and the knee joint were thoroughly irrigated with sterile saline. Fascia was closed with #1 Vicryl, subcutaneous tissues closed with 3-0 Vicryl and skin was closed with devendra. Sterile dressings were applied. Patient was awakened and transferred to recovery in stable condition.
[2018-03-07] MEDS ORDERED: *Meperidine Inj 25 MG/ML Vial PERIprocedural Use ONLY ONE (10:01)
[2018-03-07] MEDS ORDERED: *morphine SULFATE 10 MG/ML PERIprocedure ONLY ONE ×2 (10:11→10:21)
[2018-03-07] MEDS ORDERED: Lidocaine PF 1% Inj 5 ML Syringe INFILTRATN ONE (12:00)
[2018-03-07] MEDS: Calcium/Vitamin D 250/125 MG Tablet PO SCH ×2 (12:11→18:03)
[2018-03-07] MEDS: Morphine Inj 4 MG/ML Vial IV.PUSH PRN ×3 (12:29→22:43)
--- NOTE | 2018-03-07 12:42 | XR ---
EXAM DATE: 03/07/2018 12:36 PM EDT AGE/SEX: 53 years / Female INDICATIONS: IM hank left tib fib. CLINICAL DATA: This is the patient's initial encounter. Patient reports that signs and symptoms have been present for 1 day and indicates a pain score of Nonresponsive. MEDICAL/SURGICAL HISTORY: None. . section COMPARISON: [facility] [place]IB[place] 2V, 02/26/2018. . FINDINGS: Multiple coned-down views of the tibia were obtained using matrix camera and demonstrate placement of an intramedullary hank transfixing the tibial fracture. The fracture fragments are in near-anatomic a lignment. CONCLUSION: Status post open rigid internal fixation. Electronically signed by: Reginaldo Willard MD 03/07/2018 12:41 PM EDT
--- NOTE | 2018-03-07 13:37 | MD ---
cc: Catalina Cabrera MD, Gerald R DO DATE OF DISCHARGE: BRIEF PULMONARY DISCHARGE HISTORY OF PRESENT ILLNESS: Ms. Walker presented yesterday for surgical repair of a fractured tibia, but was noted on CT scan to have a right lower lobe infiltrate. Pulmonary function was adequate. O2 saturations on O2 were adequate and I suggested they proceed with the procedure because the patient was otherwise asymptomatic with a normal white count. I saw her this morning and she is fine postoperatively. Her sister and father were there with her today. The patient does have a bipolar disorder with PTSD and I am not certain has great insight into the issues here. Her primary interest today when I talked to her was getting stronger narcotics for pain. She does smoke 1-2 packs of cigarettes a day. She smoked since she was 14. Although we cannot do any further evaluation here in the hospital for that, I am sure she has some underlying emphysema because she has a pO2 of 60 on room air. Lungs are clear today. She is doing well immediately postoperative. DISCHARGE INSTRUCTIONS: I explained to the patient, to her sister and her father that when she is discharged, she should immediately have followup with Dr. Win with whom she is associated for primary medical care. She should have a followup CT scan within the next 4 to 6 weeks if she remains clinically stable and, in light of the infiltrate that we see, it would be reasonable to complete a 7-10 day course of antibiotics, particularly since she is such a heavy smoker and may be a somewhat unreliable historian. I also explained to the patient and family the importance of stopping this strong smoking habit, although I suspect that will require the help of her psychiatrist who does see her and treat her for these two psychiatric diagnoses: I do not know that she needs any maintenance therapy at this point. Her spirometry was reasonably good in the range of 60-70% and the primary focus at this point with regard to her COPD would be smoking cessation. After a complete review and discussion of this, I have answered the patient's and the family's questions to the best of my ability. I think she should be fine for discharge, although she may need oxygen if saturations remain low prior to discharge. MD KALEY Hernandez/MARIA LUISA , 01:13 PM , 01:21 PM
--- NOTE | 2018-03-07 16:21 | MB ---
cc: Sheila Sosa MD DATE: 03/07/2018 REASON FOR CONSULTATION: Question pneumonia. HISTORY OF PRESENT ILLNESS: The patient is a 53-year-old female admitted with a tibial fracture which is being surgically treated. The patient's chest x-rays with right lower lung density, CT scan confirming atelectatic change and consolidation. The patient denies history of fever, chills, cough, expectoration, hemoptysis or shortness of breath. There is no suggestion of mass by CAT scan. I am asked to see the patient at this time for same. PAST MEDICAL HISTORY: Mood disorder, namely bipolar disorder as well as posttraumatic stress disorder. PAST SURGICAL HISTORY: Has history of in the past. SOCIAL HISTORY: The patient smokes over a pack of cigarettes a day for over 20 years. Does not use drugs. Drinks alcohol socially. FAMILY HISTORY: Noncontributory. REVIEW OF SYSTEMS: A 12-point review of systems as per HPI and Past History, otherwise negative. CURRENT MEDICATIONS: Include pain medications for her pain, nebulized albuterol, Lipitor, ceftriaxone, gabapentin. ALLERGIES: CODEINE, MELOXICAM, SULFA DRUGS. PHYSICAL EXAMINATION: GENERAL: The patient is alert. VITAL SIGNS: Temperature 98.2, pulse 66, respirations 16, blood pressure 120/65. HEENT: Exam unremarkable. Eyes without icterus. NECK: Without adenopathy or thyroid enlargement. Trachea is central. CHEST: A few scattered rhonchi at bases. CARDIAC: PMI not appreciated. S1, S2 audible. No murmur. No rub. ABDOMEN: Lax, audible bowel sounds. EXTREMITIES: No clubbing, cyanosis or edema. LABORATORY DATA: White count 3.9, hemoglobin 10, hematocrit 31. Sodium 144, potassium 4.5, BUN 3, creatinine 0.5. IMAGING STUDIES: A CT scan of the chest shows atelectasis, consolidation right lower lung. IMPRESSION: 1. Atelectasis and/or pneumonia, right lower lung. 2. Tibial fracture. 3. Tobacco abuse. PLAN: 1. The patient encouraged to stop smoking. 2. Continue antibiotics. 3. Follow up chest x-ray until clear. The patient does not seem to have an acute infection; however, in view of the x-ray abnormality, antibiotic therapy for 7-10 days would be appropriate and should be continued at present. Bronchodilator therapy via nebulization will be continued. We will attempt to obtain a spirometric exam. Hopefully, the patient will be able to do so. We will follow up her care along with you and, depending on progress, proceed further. I do thank you for asking me to partake in Mrs. Walker's care. Sheila Sosa MD WWW/MARIA LUISA , 03:54 PM , 04:03 PM
[2018-03-07] MEDS: ceFAZolin Inj 2,000 MG in Sodium Chlor 0.9% Inj 80 ML IV.SIG SCH (18:02)
[2018-03-07] MEDS: Senna/Docusate Sodium 8.6/50 MG Tablet PO SCH (22:50)
[2018-03-07] MEDS: Temazepam 15 MG Capsule PO SCH (22:50)
[2018-03-08] MEDS: ceFAZolin Inj 2,000 MG in Sodium Chlor 0.9% Inj 80 ML IV.SIG SCH ×2 (00:52→10:33)
[2018-03-08] MEDS: Morphine Inj 4 MG/ML Vial IV.PUSH PRN ×2 (06:02→22:16)
--- NOTE | 2018-03-08 07:40 | P.PNOP ---
Subjective Interval history: POD 1 s/p left tibial IMN doing well. pain controlled. reports that had fall in bathroom last night Physical Exam Vital signs: Vital Signs 03/07/18 08:00 03/07/18 09:42 03/07/18 09:56 Temperature 98.8 F 97.5 F L Pulse Rate 78 92 H Respiratory Rate 16 18 16 Blood Pressure 108/63 159/94 H Pulse Oximetry 100 96 03/07/18 10:00 03/07/18 10:15 03/07/18 10:30 Temperature Pulse Rate 98 H 76 70 Respiratory Rate 16 16 16 Blood Pressure 157/92 H 144/76 H 137/67 Pulse Oximetry 97 96 96 03/07/18 10:45 03/07/18 12:00 03/07/18 15:54 Temperature 98.2 F Pulse Rate 66 66 66 Respiratory Rate 16 16 16 Blood Pressure 124/67 128/65 Pulse Oximetry 96 92 L 03/07/18 15:55 03/07/18 16:00 03/07/18 20:00 Temperature 98.8 F 96.9 F L Pulse Rate 80 78 Respiratory Rate 19 18 Blood Pressure 136/78 108/64 Pulse Oximetry 92 L 94 L 95 03/07/18 21:00 03/07/18 21:08 03/07/18 23:18 Temperature Pulse Rate 80 Respiratory Rate 18 20 20 Blood Pressure Pulse Oximetry 03/08/18 00:00 03/08/18 04:00 03/08/18 04:15 Temperature 96.8 F L 96.1 F L Pulse Rate 85 80 73 Respiratory Rate 16 16 16 Blood Pressure 127/79 143/69 H Pulse Oximetry 97 94 L 94 L 03/08/18 04:37 03/08/18 06:05 03/08/18 06:52 Temperature Pulse Rate Respiratory Rate 20 18 18 Blood Pressure Pulse Oximetry Intake & Output 03/07/18 03/08/18 03/08/18 18:59 06:59 18:59 Intake Total 1999 2680 / 2680 Output Total 100 / 100 Balance 1900 / 1900 2680 / 2680 Weight 67.6 kg Intake: IV 2200 / 2200 LR 1000 mL Inj 1,000 ML @ 80 800 / 800 mls/hr IV.CONT .[id number] [facility] Rx# :[id number] NS Inj 1,000 ML @ 100 mls/hr IV 1000 / 1000 .SIG .Q10H [facility] Rx#:[id number] Ancef Inj 2,000 MG In NS Inj 80 200 / 200 ML @ 200 mls/hr IV.SIG Q8H [facility] Rx#:[id number] Rocephin Inj 1,000 MG In NS Inj 200 / 200 100 ML @ 200 mls/hr IV.SIG Q24H [facility] Rx#:[id number] Oral 1200 / 1200 480 / 480 Anesthesia Amount 800 / 800 Output: Estimated Blood Loss 100 / 100 Other: # Voids 3 2 Date of Last Bowel Movement 03/06/18 03/06/18 # Bowel Movements 0 0 Narrative: LLE: dressings clean and dry. intact. NVI. compartments soft Results - Labs CBC & Chem 7: 03/06/18 06:45 03/06/18 06:45 Microbiology 03/05/18 19:20 Clean Catch Urine Urine Culture - Final 50-100,000 cfu/mL mixed gram positive celso (probable contaminants) - Imaging Impressions Tibia/Fibula X-Ray 03/07/18 00:00 CONCLUSION: Status post open rigid internal fixation. Assessment and Plan - Assessment and Plan 1) Left tibial Shaft Fx s/p IMN - POD 1 -TTWB -daily dressing changes POD 2 -CM for SNF placement. patient lives at home with her 87yo father. will need SNf placement -DVT prophylaxis -f/u with [facility] or [facility] in 2 weeks [facility] Prescription Drug Monitoring Database has been queried and verified prior to prescribing the controlled substance. Acute pain exception. This patient has normal, predicted, physiological, and time limited response to an adverse mechanical stimulus associated with surgery, trauma, or acute illness as described in my notes. There is a lack of alternative treatment options other than to include the prescribed narcotic treatment for this condition.
[2018-03-08] MEDS: Sod Chloride 0.9% Inj 1,000 ML IV.SIG SCH ×2 (07:58→19:12)
--- NOTE | 2018-03-08 08:16 | P.PN ---
Subjective Interval history: ALERT NO SOB AT REST SMOKING IN ROOM Physical Exam Vital signs: Vital Signs 03/07/18 09:42 03/07/18 09:56 03/07/18 10:00 Temperature 97.5 F L Pulse Rate 92 H 98 H Respiratory Rate 18 16 16 Blood Pressure 159/94 H 157/92 H Pulse Oximetry 96 97 03/07/18 10:15 03/07/18 10:30 03/07/18 10:45 Temperature Pulse Rate 76 70 66 Respiratory Rate 16 16 16 Blood Pressure 144/76 H 137/67 124/67 Pulse Oximetry 96 96 96 03/07/18 12:00 03/07/18 15:54 03/07/18 15:55 Temperature 98.2 F Pulse Rate 66 66 Respiratory Rate 16 16 Blood Pressure 128/65 Pulse Oximetry 92 L 92 L 03/07/18 16:00 03/07/18 20:00 03/07/18 21:00 Temperature 98.8 F 96.9 F L Pulse Rate 80 78 80 Respiratory Rate 19 18 18 Blood Pressure 136/78 108/64 Pulse Oximetry 94 L 95 03/07/18 21:08 03/07/18 23:18 03/08/18 00:00 Temperature 96.8 F L Pulse Rate 85 Respiratory Rate 20 20 16 Blood Pressure 127/79 Pulse Oximetry 97 03/08/18 04:00 03/08/18 04:15 03/08/18 04:37 Temperature 96.1 F L Pulse Rate 80 73 Respiratory Rate 16 16 20 Blood Pressure 143/69 H Pulse Oximetry 94 L 94 L 03/08/18 06:05 03/08/18 06:52 Temperature Pulse Rate Respiratory Rate 18 18 Blood Pressure Pulse Oximetry Intake & Output 03/07/18 03/08/18 03/08/18 18:59 06:59 18:59 Intake Total 1999 / 1999 2680 / 2680 550 / 550 Output Total 100 / 100 Balance 1900 / 1900 2680 / 2680 550 / 550 Weight 67.8 kg Intake: IV 2200 / 2200 LR 1000 mL Inj 1,000 ML @ 80 800 / 800 mls/hr IV.CONT .[id number] [facility] Rx# :[id number] NS Inj 1,000 ML @ 100 mls/hr IV 1000 / 1000 .SIG .Q10H [facility] Rx#:[id number] Ancef Inj 2,000 MG In NS Inj 80 200 / 200 ML @ 200 mls/hr IV.SIG Q8H [facility] Rx#:[id number] Rocephin Inj 1,000 MG In NS Inj 200 / 200 100 ML @ 200 mls/hr IV.SIG Q24H [facility] Rx#:[id number] Oral 1200 / 1200 480 / 480 550 / 550 Anesthesia Amount 800 / 800 Output: Estimated Blood Loss 100 / 100 Other: # Voids 3 2 6 Date of Last Bowel Movement 03/06/18 03/06/18 # Bowel Movements 0 0 Narrative: LLE: dressings clean and dry. intact. NVI. compartments soft Results - Labs CBC & Chem 7: 03/06/18 06:45 03/06/18 06:45 Microbiology 03/05/18 19:20 Clean Catch Urine Urine Culture - Final 50-100,000 cfu/mL mixed gram positive celso (probable contaminants) - Imaging Impressions Tibia/Fibula X-Ray 03/07/18 00:00 CONCLUSION: Status post open rigid internal fixation. Assessment and Plan - Plan COPD RLL ATELECTASIS FX TIBIA PLAN STOP SMOKING BRONCHODILATOR THERAPY F/U CXRAY CONTINUE ANTIBX
[2018-03-08] MEDS: Senna/Docusate Sodium 8.6/50 MG Tablet PO SCH ×2 (10:31→22:06)
[2018-03-08] MEDS: Potassium Bicarbonate 25 MEQ Effervescent Tablet PO SCH (10:32)
[2018-03-08] MEDS: LORazepam 1 MG Tablet PO PRN ×2 (10:32→15:37)
[2018-03-08] MEDS: Thyroid 60 MG Tablet PO SCH (10:32)
[2018-03-08] MEDS: Calcium/Vitamin D 250/125 MG Tablet PO SCH ×3 (10:32→19:13)
[2018-03-08] MEDS: Gabapentin 300 MG Capsule PO SCH ×3 (10:33→19:13)
[2018-03-08] MEDS: Enoxaparin Inj 30 MG/0.3 ML Syringe SQ SCH (10:33)
[2018-03-08] MEDS: Citalopram 20 MG Tablet PO SCH (10:33)
--- NOTE | 2018-03-08 11:03 | P.PNFP ---
Subjective Interval history: Resting in bed, Denies complaints Nurse reports pulled Iv out x4 Fell last night Smoking in room Results - Labs Result diagrams: 03/06/18 06:45 03/06/18 06:45 - Imaging Impressions Tibia/Fibula X-Ray 03/07/18 00:00 CONCLUSION: Status post open rigid internal fixation. Physical Exam Vital signs: Vital Signs 03/07/18 12:00 03/07/18 15:54 03/07/18 15:55 Temperature 98.2 F Pulse Rate 66 66 Respiratory Rate 16 16 Blood Pressure 128/65 Pulse Oximetry 92 L 92 L 03/07/18 16:00 03/07/18 20:00 03/07/18 21:00 Temperature 98.8 F 96.9 F L Pulse Rate 80 78 80 Respiratory Rate 19 18 18 Blood Pressure 136/78 108/64 Pulse Oximetry 94 L 95 03/07/18 21:08 03/07/18 23:18 03/08/18 00:00 Temperature 96.8 F L Pulse Rate 85 Respiratory Rate 20 20 16 Blood Pressure 127/79 Pulse Oximetry 97 03/08/18 04:00 03/08/18 04:15 03/08/18 04:37 Temperature 96.1 F L Pulse Rate 80 73 Respiratory Rate 16 16 20 Blood Pressure 143/69 H Pulse Oximetry 94 L 94 L 03/08/18 06:05 03/08/18 06:52 03/08/18 08:00 Temperature 98.0 F Pulse Rate 77 Respiratory Rate 18 18 16 Blood Pressure 132/75 Pulse Oximetry 100 03/08/18 10:04 Temperature Pulse Rate 81 Respiratory Rate 16 Blood Pressure Pulse Oximetry 94 L Intake & Output 03/07/18 03/08/18 03/08/18 18:59 06:59 18:59 Intake Total 1999 / 1999 2680 / 2680 550 / 550 Output Total 100 / 100 Balance 1900 / 1900 2680 / 2680 550 / 550 Weight 67.8 kg Intake: IV 2200 / 2200 LR 1000 mL Inj 1,000 ML @ 80 800 / 800 mls/hr IV.CONT .[id number] [facility] Rx# :[id number] NS Inj 1,000 ML @ 100 mls/hr IV 1000 / 1000 .SIG .Q10H [facility] Rx#:[id number] Ancef Inj 2,000 MG In NS Inj 80 200 / 200 ML @ 200 mls/hr IV.SIG Q8H [facility] Rx#:[id number] Rocephin Inj 1,000 MG In NS Inj 200 / 200 100 ML @ 200 mls/hr IV.SIG Q24H [facility] Rx#:[id number] Oral 1200 / 1200 480 / 480 550 / 550 Anesthesia Amount 800 / 800 Output: Estimated Blood Loss 100 / 100 Other: # Voids 3 2 6 Date of Last Bowel Movement 03/06/18 03/06/18 03/06/18 # Bowel Movements 0 0 - Constitutional no acute distress - Routine HEENT Exam Eye: Present: PERRL - Routine Neck Exam Present: supple - Routine Respiratory Exam Present: diminished air movement - Routine Cardiovascular Exam Present: S1, S2 - Routine Abdominal Exam Present: soft, normoactive bowel sounds, firm - Routine Extremities Exam Present: edema Comments: LLE, - Routine Skin Exam Comments: Dressing C/D/I LLE - Routine Neurological Exam Present: alert - Routine Psychiatric Exam Present: cooperative Assessment and Plan - Assessment (1) Closed tibia fracture Code(s): S82.209A - Unspecified fracture of shaft of unspecified tibia, initial encounter for closed fracture Status: Acute Plan: Sent by ortho for tentative surgery today NPO (2) Pneumonia Code(s): J18.9 - Pneumonia, unspecified organism Status: Acute Plan: CT chest shows opacities, with 3 month fu recommended. She is afebrile, denies Sob, will get Abg's. Sat's maintained on room air. Pulmonary consulted (3) Tobacco abuse Code(s): Z72.0 - Tobacco use Status: Acute Plan: Requesting nicotine patch (4) HLD (hyperlipidemia) Code(s): E78.5 - Hyperlipidemia, unspecified Status: Acute Plan: Cont home meds (5) Hypothyroid Code(s): E03.9 - Hypothyroidism, unspecified Status: Acute Plan: Cont home medications. - Assessment and Plan 03/07/18 VSS afebrile, Surgery delayed yesterday related to Abnormal ABG. PFT obtained, Pulmonary consulted. See on way to OR this am Report uneventful night. 03/08/18- Vss afebrile.Reports of smoking in room, pulled Iv out x4. She is on CWAl protocol. Had fall in bathroom last night, no reported injury. Nicotine patch started today. Pulmonary following, cont Bronchodilators, Rocephin. Post op day1, Dc to snf over weekend if stable. (1) Closed tibia fracture Qualifiers: Encounter type: subsequent encounter Tibia location: distal Fracture morphology: unspecified fracture morphology Laterality: left Fracture healing : with delayed healing Qualified Code(s): S82.302G - Unspecified fracture of lower end of left tibia, subsequent encounter for closed fracture with delayed healing
--- NOTE | 2018-03-08 15:09 | P.CONPSY ---
Provisional Diagnosis Admission Date: March 05, 2018 20:46 [place] I.: 1. Delirium, multifactorial 2. History of bipolar disorder and alcohol use disorder [place] II.: Deferred History of Present Illness Service: Psychiatry Consult date: 03/08/18 Requesting Physician: Flavio Win Reason for Consult: Medication adjustment Primary Care Provider: Flavio Win DO History of Present Illness: Ms. Walker is a 53-year-old female with a history of bipolar disorder and alcohol use disorder who is presently admitted to the Med/Surg floor following repair of left tibia fracture yesterday. She was initially admitted to the hospital on 03/05. Reviewing the electronic medical record, I note that the patient was admitted in [address] Frias. Patient seen and examined. Chart reviewed. Case discussed with Dr. Win. Case discussed with nursing staff who reports patient has been quite confused and responding to internal stimuli. On my examination today, the patient does indeed present as confused and distractible. She exhibits word finding difficulties. Patient initially expresses frustration that her sister was sitting in a chair in her room "and now she is gone." I suspect that the patient was experiencing visual hallucination as the chair is in fact filled with linens. She denies any suicidal or homicidal ideation. She complains of some low mood and cites sister and boyfriend moving into her house as her main stressor. Appetite and sleep are reportedly poor although the patient does say that she takes hypnotics at home. No severe depressive symptoms. No hypomanic or manic symptoms. She appears to be responding to internal stimuli although she denies AVH. I can elicit no delusional material. Remainder of the psychiatric ROS is negative. Past psychiatric history: Patient is likely an unreliable historian. She reports a history of bipolar illness. She is not under the care of a psychiatrist presently. Most recent psychiatric admission was reportedly here at [place]. She reports a history of 3 or 4 previous suicide attempts all by overdose. Family history: The patient reports that her brother completed suicide although she is unsure of his mental illness diagnosis. Chemical dependency history: The patient reports that she uses "legal drugs." She says that she drinks of vodka and grapefruit juice about twice a week and has perhaps 2 beers a day. She denies a history of DTs or seizures. She denies any other substance use. Social history: Patient tells me that she lives "with the rat pack." Unclear what she means by this, although she did previously tell me that her sister and sister's boyfriend have moved into the house. Patient reports that she is with 2 children. She is college educated but struggles to remember what she studied in college. She denies any legal history. Denies any history. Denies any access to guns or firearms. Denies any sikh or spiritual beliefs. Mental status testing: Registration is 3 out of 3 and recall is 0 out of 3 at 3 minutes. She is oriented to person, month/year and [place] but she does not know the date nor does she know what floor she is on. She is able to spell the word WORLD backwards with no errors but struggles considerably with serial sevens, completing no correct subtractions. She is able to name 2 items but struggles to repeat a phrase. She can name the last 4 presidents. Proverb interpretation is concrete. Review of Systems unobtainable due to mental status PMFSH - History History Provided By: Patient - Medical History Medical History: Medical History (Last Reviewed 03/07/18 @ 14:41 by Beatriz Henriquez) Bipolar 1 disorder Depression PTSD (post-traumatic stress disorder) - Surgical History Surgical History: Surgical History (Last Reviewed 03/07/18 @ 14:41 by Beatriz Henriquez) History of - Tobacco History Second Hand Smoke Exposure: Yes Tobacco Use In Past 30 Days: Yes Smoking Status: Current every day smoker Tobacco Type: Cigarettes - Alcohol History How Often Do You Have a Drink Containing Alcohol: 2 to 3 times a week - Substance Use History Substance History: No History of Abuse - Travel History Recent Travel in the [facility] Within the Last 8 Weeks: No Recent Travel Out of the Country Within the Last 8 Weeks: No - Immunization History Tetanus Immunization: Unsure Hx Influenza Vaccine This Season: No Medications and Allergies Active Medications: Active Medications Hydrocodone Bitart/Acetaminophen ([place] 7.5/325) 1 tab PO Q3H PRN PRN Reason: Pain Scale 3-10 Last Admin: 03/08/18 10:31 Dose: 1 tab Al Hydroxide/Mg Hydroxide (Milk Of Meli Liq) 30 ml PO BID PRN PRN Reason: MILD CONSTIPATION Albuterol (Duoneb Neb (Abhishek)) 1 ampul NEB Q6HR NEB ABHISHEK Last Admin: 03/08/18 10:03 Dose: 1 ampul Atorvastatin Calcium (Lipitor) 40 mg PO DAILY [facility] Last Admin: 03/08/18 10:32 Dose: 40 mg Bisacodyl (Dulcolax Supp) 10 mg RECTAL DAILY PRN PRN Reason: SEVERE CONSITIPATION Calcium/Vitamin D (Oscal With D 250/125 Mg) 1 tab PO TID [facility] Last Admin: 03/08/18 12:26 Dose: 1 tab Citalopram Hydrobromide (Celexa) 20 mg PO DAILY [facility] Last Admin: 03/08/18 10:33 Dose: 20 mg Diphenhydramine HCl (Benadryl) 25 mg PO Q6H PRN PRN Reason: ITCHING Enoxaparin Sodium (Lovenox Inj) 30 mg SQ Q24H [facility] Last Admin: 03/08/18 10:33 Dose: 30 mg Fentanyl (Duragesic 25 Mcg Patch.72hr) 1 patch T-DERMAL Q72H [facility] Last Admin: 03/06/18 22:01 Dose: 1 patch Flumazenil (Romazecon Inj) 0.2 mg IV.PUSH Q1M PRN PRN Reason: OVERSEDATION Gabapentin (Neurontin) 300 mg PO TID [facility] Last Admin: 03/08/18 12:26 Dose: 300 mg Sodium Chloride (Ns Inj) 1,000 mls @ 100 mls/hr IV.SIG .Q10H [facility] Last Admin: 03/08/18 07:58 Dose: Not Given Lactated Ringer's (Lr 1000 Ml Inj) 1,000 mls @ 80 mls/hr IV.CONT .[id number] [facility] Last Admin: 03/08/18 10:38 Dose: Not Given Lorazepam (Ativan) 1 mg PO Q4H PRN PRN Reason: for CIWA 8-10 Last Admin: 03/08/18 10:32 Dose: 1 mg Lorazepam (Ativan) 2 mg PO Q2H PRN PRN Reason: for CIWA 11-14 Lorazepam (Ativan Inj) 2 mg IV.PUSH Q2H PRN PRN Reason: for CIWA 11-14 Last Admin: 03/08/18 06:56 Dose: 2 mg Lorazepam (Ativan Inj) 2 mg IV.PUSH Q1H PRN PRN Reason: for CIWA 15-20 Lorazepam (Ativan Inj) 2 mg IV.PUSH Q15M PRN PRN Reason: for CIWA > 20 Lorazepam (Ativan Inj) 1 mg IV.PUSH Q4H PRN PRN Reason: for CIWA 8-10 Morphine Sulfate (Morphine Inj) 4 mg IV.PUSH Q3H PRN PRN Reason: BREAKTHROUGH PAIN Last Admin: 03/08/18 06:02 Dose: 4 mg Nicotine (Habitrol 14 Mg Patch.24 Hr) 1 patch T-DERMAL DAILY [facility] Last Admin: 03/08/18 10:33 Dose: 1 patch Ondansetron HCl (Zofran Odt) 4 mg PO Q6H PRN PRN Reason: NAUSEA OR VOMITING Ondansetron HCl (Zofran Inj) 4 mg IV.PUSH Q6H PRN PRN Reason: NAUSEA OR VOMITING Patch Removal (Remove Old Patch) 1 each T-DERMAL Q72H [facility] Patch Removal (Remove Old Patch) 1 each T-DERMAL DAILY [facility] Last Admin: 03/08/18 10:34 Dose: Not Given Potassium Bicarbonate (Effer-K) 50 meq PO DAILY [facility] Last Admin: 03/08/18 10:32 Dose: 50 meq Quetiapine Fumarate (Seroquel) 300 mg PO [facility] Last Admin: 03/07/18 22:50 Dose: 300 mg Senna/Docusate Sodium (Domonique-Colace) 1 tab PO BID [facility] Last Admin: 03/08/18 10:31 Dose: 1 tab Sodium Chloride (Ns Flush) 2 ml IV.FLUSH BID [facility] Last Admin: 03/08/18 10:33 Dose: Not Given Sodium Chloride (Ns Flush) 2 ml IV.FLUSH PRN PRN PRN Reason: FLUSH AFTER USING IV ACCESS Temazepam (Restoril) 30 mg PO HS [facility] Last Admin: 03/07/18 22:50 Dose: 30 mg Thyroid (Raymond Thyroid) 60 mg PO DAILY [facility] Last Admin: 03/08/18 10:32 Dose: 60 mg Tramadol HCl (Ultram) 50 mg PO TID PRN PRN Reason: PAIN SCALE 1 - 10 Last Admin: 03/07/18 04:13 Dose: 50 mg Vitamin D (Vitamin D3) 5,000 unit PO DAILY [facility] Last Admin: 03/08/18 10:34 Dose: 5,000 unit Allergies Allergy/AdvReac Type Severity Reaction Status Date / Time codeine Allergy Severe Itching Verified 03/05/18 23:32 meloxicam Allergy Unknown Itching, Verified 02/26/18 15:23 Generalized Sulfa (Sulfonamide Allergy Unknown Itching Verified 03/05/18 23:32 Antibiotics) Home Medications Medication Instructions Recorded Confirmed Type citalopram [Celexa] 20 mg PO DAILY 02/26/18 03/05/18 History escitalopram oxalate [Lexapro] 20 mg PO DAILY 02/26/18 03/05/18 History gabapentin 300 mg PO TID 02/26/18 03/05/18 History quetiapine [Seroquel XR] 300 mg PO HS 02/26/18 03/05/18 History temazepam 30 mg PO HS 02/26/18 03/05/18 History tramadol 50 mg PO TID PRN 02/26/18 03/05/18 History trazodone 50 mg PO DAILY 02/26/18 03/05/18 History hydroxyzine pamoate 50 mg PO TID-QID PRN 03/05/18 03/05/18 History rosuvastatin 20 mg PO DAILY 03/05/18 03/05/18 History thyroid (pork) [[employer] Thyroid] 60 mg PO DAILY 03/05/18 03/05/18 History Exam Vital signs: Vital Signs 03/07/18 15:54 03/07/18 15:55 03/07/18 16:00 Temperature 98.8 F Pulse Rate 66 80 Respiratory Rate 16 19 Blood Pressure 136/78 Pulse Oximetry 92 L 94 L 03/07/18 20:00 03/07/18 21:00 03/07/18 21:08 Temperature 96.9 F L Pulse Rate 78 80 Respiratory Rate 18 18 20 Blood Pressure 108/64 Pulse Oximetry 95 03/07/18 23:18 03/08/18 00:00 03/08/18 04:00 Temperature 96.8 F L 96.1 F L Pulse Rate 85 80 Respiratory Rate 20 16 16 Blood Pressure 127/79 143/69 H Pulse Oximetry 97 94 L 03/08/18 04:15 03/08/18 04:37 03/08/18 06:05 Temperature Pulse Rate 73 Respiratory Rate 16 20 18 Blood Pressure Pulse Oximetry 94 L 03/08/18 06:52 03/08/18 08:00 03/08/18 10:04 Temperature 98.0 F Pulse Rate 77 81 Respiratory Rate 18 16 16 Blood Pressure 132/75 Pulse Oximetry 100 94 L 03/08/18 12:00 Temperature 98.1 F Pulse Rate 72 Respiratory Rate 16 Blood Pressure 136/75 Pulse Oximetry 97 Intake & Output 03/07/18 03/08/18 03/08/18 18:59 06:59 18:59 Intake Total 1999 / 1999 2680 / 2680 550 / 550 Output Total 100 / 100 Balance 1900 / 1900 2680 / 2680 550 / 550 Weight 67.8 kg Intake: IV 2200 / 2200 LR 1000 mL Inj 1,000 ML @ 80 800 / 800 mls/hr IV.CONT .[id number] ABHISHEK Rx# :[id number] NS Inj 1,000 ML @ 100 mls/hr IV 1000 / 1000 .SIG .Q10H ABHISHEK Rx#:[id number] Ancef Inj 2,000 MG In NS Inj 80 200 / 200 ML @ 200 mls/hr IV.SIG Q8H ABHISHEK Rx#:[id number] Rocephin Inj 1,000 MG In NS Inj 200 / 200 100 ML @ 200 mls/hr IV.SIG Q24H ABHISHEK Rx#:[id number] Oral 1200 / 1200 480 / 480 550 / 550 Anesthesia Amount 800 / 800 Output: Estimated Blood Loss 100 / 100 Other: # Voids 3 2 6 Date of Last Bowel Movement 03/06/18 03/06/18 03/06/18 # Bowel Movements 0 0 Narrative: Physical examination completed by primary team. On my examination today, the patient appears to be in no acute physical distress. Her left leg is bandaged. She has a mild resting hand tremor but no diaphoresis, no mydriasis, no tongue fasciculations. No motor abnormalities noted otherwise. Labs and vital signs reviewed: Laboratory Tests 03/05/18 03/05/18 03/05/18 20:30 20:30 20:30 WBC Hgb Plt Count PT 9.9 INR 1.0 APTT 25.7 Sodium Potassium Chloride Carbon Dioxide BUN Creatinine AST 51 H ALT 31 Alkaline Phosphatase 110 03/06/18 03/06/18 06:45 06:45 WBC 3.9 L Hgb 10.6 L Plt Count 245 PT INR APTT Sodium 144 Potassium 4.5 D Chloride 105 Carbon Dioxide 34.8 H BUN 3 L Creatinine 0.57 AST ALT Alkaline Phosphatase Urinalysis obtained on 03/05 was concerning for UTI but urine culture revealed only mixed celso. EKG obtained 03/05 revealed right bundle branch block with QTc of 447 ms, not prolonged. Head CT obtained 02/26 was read as negative. Mental Status Examination Appearance: Disheveled Consciousness: Alert Orientation: Person, Place ([place]), Date/Time (Month/year) Motor Activity: Other (Motor exam as above) Speech: Hesitant Language: Other (Somewhat rambling) Fund of Knowledge: Adequate Attention and Concentration: Easily distracted Memory: Impaired Mood: Other (Somewhat dysphoric) Affect: Blunt Thought Process & Associations: Tangential Thought Content: Hallucinations Hallucination Type: Visual Delusion Type: None Suicidal Ideation: No Suicidal Plan: No Suicidal Intention: No Homicidal Ideation: No Homicidal Plan: No Homicidal Intention: No Mental Status Exam Remarks: Insight and judgment are presently poor. Assessment and Plan - Assessment (1) Delirium due to another medical condition Code(s): F05 - Delirium due to known physiological condition Status: Acute (2) Closed tibia fracture Code(s): S82.209A - Unspecified fracture of shaft of unspecified tibia, initial encounter for closed fracture Status: Acute - Plan Plan: 53-year-old female with psychiatric history as detailed above who is presently admitted to the med/surg floor following repair of tibia fracture. Psychiatry is consulted for medication adjustment because the patient has been hallucinating and behaving in a strange fashion. On my exam, patient presents as somewhat disoriented and inattentive. I suspect she is delirious. I do not suspect decompensation of her historical diagnosis of bipolar illness. Etiology of patient's delirium is likely multifactorial with contributions from post-surgical state, hypoxia/hypercapnia in setting of COPD, possible contribution from alcohol withdrawal (although she does not have many stigmata of withdrawal on exam, nor do her vital signs suggest withdrawal). I recommend the following: --Titrate patient's Seroquel to 25mg p.o. @09:00 and 15:00 and continue HS dose as ordered for delirium. I have taken the liberty of making this change. Daytime doses of Seroquel can be titrated in 2-3 days to 50mg @09:00 and 15:00 if inadequate response to the lower dose. Consider rechecking EKG for QTc to ensure this is not growing prolonged with increased antipsychotic dose, especially since she is presently prescribed other medications that can prolong the QTc including Zofran and Ultram. Her Celexa may be continued. --Recommend further workup for other potential etiologies of patient's delirium including: TSH, ammonia, B12, thiamine/folate. Consider repeat UA for possible new UTI. Could consider RPR, HIV. --Continue CIWA with Ativan but realize that CIWA can erroneously moss picker agitation/anxiety from non-withdrawal delirium and medicate inappropriately with Ativan. General trend of Ativan requirement should be downward. If daily Ativan requirement by CIWA is flat or trending upward, consider discontinuing and placing patient on a scheduled benzo taper to cover for withdrawal while preventing overmedication with benzodiazepines, which can worsen mental status. --In general would limit the use of opiates (except as needed to manage severe pain), anticholinergics, antihistamines and benzodiazepines (except as needed to manage withdrawal) as all can worsen mental status. --General delirium management recommendations including: Early mobilization as able and frequent reorientation. Limitation of use of restraints and preference for sitter for behavioral redirection. Aggressive management of any urinary retention or constipation. Shades up and out of bed as able during the day and minimal disturbance at night to promote regular sleep patterns. Provision of assistive devices such as hearing aids or eyeglasses if worn. Case discussed with RN following my visit with the patient. I will sign the case out to Dr. Smith when he returns on 03/11. I will be in house through the weekend if there are issues. Please call or page [phone] with questions. Thank you very much for this consultation. Justification for Continued Inpatient Stay: Per primary team. (2) Closed tibia fracture Qualifiers: Encounter type: subsequent encounter Tibia location: distal Fracture morphology: unspecified fracture morphology Laterality: left Fracture healing : with delayed healing Qualified Code(s): S82.302G - Unspecified fracture of lower end of left tibia, subsequent encounter for closed fracture with delayed healing
[2018-03-08] MEDS: Temazepam 15 MG Capsule PO SCH (22:05)
[2018-03-09] MEDS: Morphine Inj 4 MG/ML Vial IV.PUSH PRN ×6 (05:36→22:42)
[2018-03-09 06:23] LABS: Hematocrit 26.6 % (35.0-46.0); Hemoglobin 9.1 gm/dL (11.6-15.3); Mean Corpuscular HGB Conc 34.4 % (32.0-36.0); Mean Corpuscular Hemoglobin 32.9 pg (27.0-34.0); Mean Corpuscular Volume 95.7 fL (80.0-100.0); Mean Platelet Volume 8.3 fL (7.0-11.0); Platelet Count 263 th/mm3 (150-450); Red Blood Count 2.77 mil/mm3 (4.00-5.30); Red Cell Distribution Width 15.6 % (11.6-17.2); White Blood Count 4.3 th/mm3 (4.0-11.0)
[2018-03-09 06:39] LABS: Anion Gap 8 meq/L (5-15); Blood Urea Nitrogen 4 mg/dL (7-18); Calcium 8.4 mg/dL (8.5-10.1); Chloride 105 meq/L (98-107); Glomerular Filtration Rate Greater Than 89 mL/min (>89); Glucose,Random 69 mg/dL (74-106); Potassium 3.6 meq/L (3.5-5.1); Sodium 142 meq/L (136-145)
--- NOTE | 2018-03-09 07:22 | P.PNOP ---
Subjective Interval history: Pain is controlled with no new complaints Physical Exam Vital signs: Vital Signs 03/08/18 08:00 03/08/18 10:04 03/08/18 12:00 Temperature 98.0 F 98.1 F Pulse Rate 77 81 72 Respiratory Rate 16 16 16 Blood Pressure 132/75 136/75 Pulse Oximetry 100 94 L 97 03/08/18 16:28 03/08/18 16:29 03/08/18 20:00 Temperature 98 F Pulse Rate 88 75 Respiratory Rate 18 16 Blood Pressure 130/78 Pulse Oximetry 94 L 98 03/08/18 21:23 03/09/18 00:00 03/09/18 04:00 Temperature 98.2 F 98.1 F Pulse Rate 90 74 75 Respiratory Rate 20 16 16 Blood Pressure 132/77 138/80 Pulse Oximetry 98 98 Intake & Output 03/08/18 03/09/18 03/09/18 18:59 06:59 18:59 Intake Total 550 / 550 Balance 550 / 550 Weight 68 kg Intake: Oral 550 / 550 Other: # Voids 6 Date of Last Bowel Movement 03/06/18 Narrative: Left lower extremity: Clean dry dressings intact. Compartments soft. Active dorsiflexion and plantar flexion of foot. Intact distal pulses and capillary refills Results - Labs CBC & Chem 7: 03/09/18 04:27 03/09/18 04:27 Laboratory Results - last 24 hr 03/08/18 03/09/18 03/09/18 09:12 04:27 04:27 WBC 4.3 RBC 2.77 L Hgb 9.1 L Hct 26.6 L MCV 95.7 MCH 32.9 MCHC 34.4 RDW 15.6 Plt Count 263 MPV 8.3 Sodium 142 Potassium 3.6 Chloride 105 Carbon Dioxide 29.0 Anion Gap 8 BUN 4 L Creatinine 0.44 L Estimated GFR Greater than 89 POC Glucose 79 Random Glucose 69 L Calcium 8.4 L Assessment and Plan - Assessment and Plan 1) Left tibial Shaft Fx s/p IMN - POD 2 -TTWB -daily dressing changes POD 2 -CM for SNF placement. patient lives at home with her 87yo father. will need SNf placement -DVT prophylaxis -f/u with [facility] in 2 weeks [id number] Prescription Drug Monitoring Database has been queried and verified prior to prescribing the controlled substance. Acute pain exception. This patient has normal, predicted, physiological, and time limited response to an adverse mechanical stimulus associated with surgery, trauma, or acute illness as described in my notes. There is a lack of alternative treatment options other than to include the prescribed narcotic treatment for this condition.
[2018-03-09] MEDS: Citalopram 20 MG Tablet PO SCH (08:13)
[2018-03-09] MEDS: Enoxaparin Inj 30 MG/0.3 ML Syringe SQ SCH (08:13)
[2018-03-09] MEDS: Gabapentin 300 MG Capsule PO SCH ×3 (08:14→17:15)
[2018-03-09] MEDS: QUEtiapine 25 MG Tablet PO SCH ×2 (08:14→17:15)
[2018-03-09] MEDS: Senna/Docusate Sodium 8.6/50 MG Tablet PO SCH ×2 (08:14→20:55)
[2018-03-09] MEDS: Calcium/Vitamin D 250/125 MG Tablet PO SCH ×3 (08:14→17:15)
[2018-03-09] MEDS: Sod Chloride 0.9% Inj 1,000 ML IV.SIG SCH ×3 (10:03→23:01)
[2018-03-09] MEDS: Thyroid 60 MG Tablet PO SCH (10:04)
[2018-03-09] MEDS: Potassium Bicarbonate 25 MEQ Effervescent Tablet PO SCH (10:05)
--- NOTE | 2018-03-09 11:31 | P.PNFP ---
Subjective Interval history: S/P ORIF left hip fracture with substantial pain on IV MSAlyssa Mendez encouraged her to switch to PO oxycodone and she will consider. Otherwise she is without complaints. Results - Labs Result diagrams: 03/09/18 04:27 03/09/18 04:27 Abnormal lab results 03/09/18 03/09/18 Range/Units 04:27 04:27 RBC 2.77 L (4.00-5.30) mil/mm3 Hgb 9.1 L (11.6-15.3) gm/dL Hct 26.6 L (35.0-46.0) % BUN 4 L (7-18) mg/dL Creatinine 0.44 L (0.50-1.00) mg/dL Random Glucose 69 L (74-106) mg/dL Calcium 8.4 L (8.5-10.1) mg/dL Short CBC 03/09/18 Range/Units 04:27 WBC 4.3 (4.0-11.0) th/mm3 Hgb 9.1 L (11.6-15.3) gm/dL Hct 26.6 L (35.0-46.0) % Plt Count 263 (150-450) th/mm3 BMP 03/09/18 04:27 Sodium 142 Potassium 3.6 Chloride 105 Carbon Dioxide 29.0 BUN 4 L Creatinine 0.44 L Calcium 8.4 L Physical Exam Vital signs: Vital Signs 03/08/18 12:00 03/08/18 16:28 03/08/18 16:29 Temperature 98.1 F Pulse Rate 72 88 Respiratory Rate 16 18 Blood Pressure 136/75 Pulse Oximetry 97 94 L 03/08/18 20:00 03/08/18 21:23 03/09/18 00:00 Temperature 98 F 98.2 F Pulse Rate 75 90 74 Respiratory Rate 16 20 16 Blood Pressure 130/78 132/77 Pulse Oximetry 98 98 03/09/18 04:00 03/09/18 08:00 03/09/18 10:24 Temperature 98.1 F 97.7 F Pulse Rate 75 90 94 H Respiratory Rate 16 18 12 Blood Pressure 138/80 145/74 H Pulse Oximetry 98 97 95 Intake & Output 03/08/18 03/09/18 03/09/18 18:59 06:59 18:59 Intake Total 550 / 550 Balance 550 / 550 Weight 68 kg Intake: Oral 550 / 550 Other: # Voids 6 Date of Last Bowel Movement 03/06/18 03/06/18 - Constitutional no acute distress - Routine HEENT Exam Head: Present: normocephalic Eye: Present: PERRL, normal accommodation ENT: Present: mucous membranes moist - Routine Neck Exam Present: supple, full ROM - Routine Respiratory Exam Present: CTA bilaterally - Routine Cardiovascular Exam Present: RRR, S1, S2 - Routine Abdominal Exam Present: soft, normoactive bowel sounds - Routine Extremities Exam Comments: LROM left hip. - Routine Skin Exam Present: intact - Routine Neurological Exam Present: alert, oriented X3 - Detailed Neurological Exam: Coma Scale Eye Opening: Spontaneous Verbal Response: Oriented Motor Response: Obey commands [place] Coma Scale Total: 15 - Routine Psychiatric Exam Present: normal affect, normal thought process Assessment and Plan - Assessment (1) Closed tibia fracture Code(s): S82.209A - Unspecified fracture of shaft of unspecified tibia, initial encounter for closed fracture Status: Acute Plan: S/P ORIF left hip fracture. (2) Pneumonia Code(s): J18.9 - Pneumonia, unspecified organism Status: Acute Plan: CT chest shows opacities, with 3 month fu recommended. She is afebrile, denies Sob, she is on RA and breathing well. Pulmonary is following. (3) Tobacco abuse Code(s): Z72.0 - Tobacco use Status: Acute Plan: Now on a nicotine patch (4) HLD (hyperlipidemia) Code(s): E78.5 - Hyperlipidemia, unspecified Status: Acute Plan: Cont home meds (5) Hypothyroid Code(s): E03.9 - Hypothyroidism, unspecified Status: Acute Plan: Cont home medications. - Assessment and Plan 03/07/18 VSS afebrile, Surgery delayed yesterday related to Abnormal ABG. PFT obtained, Pulmonary consulted. See on way to OR this am Report uneventful night. 03/08/18- Vss afebrile.Reports of smoking in room, pulled Iv out x4. She is on CWAl protocol. Had fall in bathroom last night, no reported injury. Nicotine patch started today. Pulmonary following, cont Bronchodilators, Rocephin. Post op day1, Dc to snf over weekend if stable. (1) Closed tibia fracture Qualifiers: Encounter type: subsequent encounter Tibia location: distal Fracture morphology: unspecified fracture morphology Laterality: left Fracture healing : with delayed healing Qualified Code(s): S82.302G - Unspecified fracture of lower end of left tibia, subsequent encounter for closed fracture with delayed healing
[2018-03-09] MEDS: Temazepam 15 MG Capsule PO SCH (20:53)
[2018-03-10] MEDS: Senna/Docusate Sodium 8.6/50 MG Tablet PO SCH ×2 (08:04→21:33)
[2018-03-10] MEDS: QUEtiapine 25 MG Tablet PO SCH ×2 (08:05→13:59)
[2018-03-10] MEDS: Morphine Inj 4 MG/ML Vial IV.PUSH PRN ×5 (08:05→20:35)
[2018-03-10] MEDS: Enoxaparin Inj 30 MG/0.3 ML Syringe SQ SCH (08:05)
[2018-03-10] MEDS: Gabapentin 300 MG Capsule PO SCH ×3 (08:05→17:00)
[2018-03-10] MEDS: Citalopram 20 MG Tablet PO SCH (08:05)
[2018-03-10] MEDS: Calcium/Vitamin D 250/125 MG Tablet PO SCH ×3 (08:05→17:00)
[2018-03-10] MEDS: Potassium Bicarbonate 25 MEQ Effervescent Tablet PO SCH (09:10)
[2018-03-10] MEDS: Thyroid 60 MG Tablet PO SCH (09:10)
[2018-03-10] MEDS: Sod Chloride 0.9% Inj 1,000 ML IV.SIG SCH ×2 (09:40→19:01)
--- NOTE | 2018-03-10 10:50 | P.PNFP ---
Subjective Interval history: She tells me she was up walking with PT yesterday but got pain meds late last night and was in pain but is better today. Referred to [facility] [place] today. Results - Labs Result diagrams: 03/09/18 04:27 03/09/18 04:27 Physical Exam Vital signs: Vital Signs 03/09/18 12:00 03/09/18 15:56 03/09/18 16:00 Temperature 98.0 F 97.6 F Pulse Rate 96 H 82 92 H Respiratory Rate 18 12 18 Blood Pressure 122/59 L 110/61 Pulse Oximetry 93 L 93 L 03/09/18 19:25 03/09/18 21:28 03/09/18 21:29 Temperature 98.5 F Pulse Rate 84 92 H Respiratory Rate 18 16 18 Blood Pressure 95/54 L Pulse Oximetry 97 95 03/09/18 22:44 03/10/18 01:05 03/10/18 04:15 Temperature 98.5 F 98.2 F Pulse Rate 86 84 Respiratory Rate 18 18 18 Blood Pressure 94/53 L 98/56 L Pulse Oximetry 98 97 03/10/18 08:00 Temperature 98.4 F Pulse Rate 89 Respiratory Rate 17 Blood Pressure 112/62 Pulse Oximetry 92 L Intake & Output 03/09/18 03/10/18 03/10/18 18:59 06:59 18:59 Intake Total 1200 / 1200 360 / 360 240 / 240 Balance 1200 / 1200 360 / 360 240 / 240 Weight 68 kg Intake: Oral 1200 / 1200 360 / 360 240 / 240 Other: # Voids 8 1 Date of Last Bowel Movement 03/06/18 03/09/18 03/08/18 # Bowel Movements 0 - Constitutional no acute distress - Routine HEENT Exam Head: Present: normocephalic Eye: Present: normal accommodation ENT: Present: mucous membranes moist - Routine Neck Exam Present: supple, full ROM - Routine Respiratory Exam Present: CTA bilaterally - Routine Cardiovascular Exam Present: RRR, S1, S2 - Routine Abdominal Exam Present: soft, normoactive bowel sounds - Routine Extremities Exam Comments: Left leg pain. Splint in place with LROM due to pain. - Routine Skin Exam Present: intact - Routine Neurological Exam Present: alert, oriented X3 - Detailed Neurological Exam: Coma Scale Eye Opening: Spontaneous Verbal Response: Oriented Motor Response: Obey commands Whitney Coma Scale Total: 15 - Routine Psychiatric Exam Present: normal affect Assessment and Plan - Assessment (1) Closed tibia fracture Code(s): S82.209A - Unspecified fracture of shaft of unspecified tibia, initial encounter for closed fracture Status: Acute Plan: S/P ORIF left hip fracture. Now up walking with PT. Pain somewhat better and now on PO pain meds. (2) Pneumonia Code(s): J18.9 - Pneumonia, unspecified organism Status: Acute Plan: CT chest shows opacities, with 3 month fu recommended. She is afebrile, denies Sob, she is on RA and breathing well. Pulmonary is following. (3) Tobacco abuse Code(s): Z72.0 - Tobacco use Status: Acute Plan: Now on a nicotine patch (4) HLD (hyperlipidemia) Code(s): E78.5 - Hyperlipidemia, unspecified Status: Acute Plan: Cont home meds (5) Hypothyroid Code(s): E03.9 - Hypothyroidism, unspecified Status: Acute Plan: Cont home medications. - Assessment and Plan 03/07/18 VSS afebrile, Surgery delayed yesterday related to Abnormal ABG. PFT obtained, Pulmonary consulted. See on way to OR this am Report uneventful night. 03/08/18- Vss afebrile.Reports of smoking in room, pulled Iv out x4. She is on CWAl protocol. Had fall in bathroom last night, no reported injury. Nicotine patch started today. Pulmonary following, cont Bronchodilators, Rocephin. Post op day1, Dc to snf over weekend if stable. 03/09/18 - Her VS are staqble and she remains afebrile. She is starting to walk with PT and I have sent a referral to [facility] for placement. F/U Ortho and Pulm recommendations. (1) Closed tibia fracture Qualifiers: Encounter type: subsequent encounter Tibia location: distal Fracture morphology: unspecified fracture morphology Laterality: left Fracture healing : with delayed healing Qualified Code(s): S82.302G - Unspecified fracture of lower end of left tibia, subsequent encounter for closed fracture with delayed healing
[2018-03-10 16:14] VITALS: RESP 18
[2018-03-10] MEDS: Temazepam 15 MG Capsule PO SCH (21:33)
[2018-03-11] MEDS: Sod Chloride 0.9% Inj 1,000 ML IV.SIG SCH (04:03)
[2018-03-11] MEDS: Thyroid 60 MG Tablet PO SCH (06:20)
--- NOTE | 2018-03-11 08:44 | P.PNPSY ---
Case signed out to Dr. Smith @0830 03/11/18. He will assume the psychiatric consultative role.
[2018-03-11] MEDS: Citalopram 20 MG Tablet PO SCH (08:53)
[2018-03-11] MEDS: Gabapentin 300 MG Capsule PO SCH ×2 (08:53→12:56)
[2018-03-11] MEDS: Enoxaparin Inj 30 MG/0.3 ML Syringe SQ SCH (08:54)
[2018-03-11] MEDS: Morphine Inj 4 MG/ML Vial IV.PUSH PRN ×2 (08:54→12:57)
[2018-03-11] MEDS: Calcium/Vitamin D 250/125 MG Tablet PO SCH ×2 (08:54→12:57)
--- NOTE | 2018-03-11 08:55 | P.PN ---
Subjective Interval history: ALERT NO SOB Physical Exam Vital signs: Vital Signs 03/10/18 12:00 03/10/18 16:00 03/10/18 20:34 Temperature 99.4 F 98.2 F 98.7 F Pulse Rate 82 76 89 Respiratory Rate 17 18 18 Blood Pressure 109/59 L 117/58 L 142/77 H Pulse Oximetry 92 L 94 L 96 03/10/18 20:37 03/10/18 23:27 03/11/18 04:22 Temperature 98.2 F 98.2 F Pulse Rate 73 79 Respiratory Rate 18 18 Blood Pressure 92/60 L 121/63 Pulse Oximetry 97 96 Intake & Output 03/10/18 03/11/18 03/11/18 18:59 06:59 18:59 Intake Total 1440 / 1440 360 / 360 Balance 1440 / 1440 360 / 360 Intake: Oral 1440 / 1440 360 / 360 Other: # Voids 10 1 Date of Last Bowel Movement 03/08/18 03/09/18 # Bowel Movements 0 Narrative: Left lower extremity: Clean dry dressings intact. Compartments soft. Active dorsiflexion and plantar flexion of foot. Intact distal pulses and capillary refills Results - Labs CBC & Chem 7: 03/09/18 04:27 03/09/18 04:27 Assessment and Plan - Plan COPD RLL ATELECTASIS FX TIBIA PLAN STOP SMOKING BRONCHODILATOR THERAPY F/U CXRAY CONTINUE ANTIBX TO BRENDA
[2018-03-11] MEDS: Senna/Docusate Sodium 8.6/50 MG Tablet PO SCH (09:03)
[2018-03-11] MEDS: QUEtiapine 25 MG Tablet PO SCH (09:05)
--- NOTE | 2018-03-11 09:41 | P.DS ---
<Flavio Win - Last Filed: 03/22/18 10:36> Date of admission: 03/05/18 20:46 Primary care physician: Flavio Win DO DS: Diagnosis - Discharge Diagnosis (1) Pneumonia Status: Acute DS: Medications - Discharge Medications Prescriptions: hydrocodone-acetaminophen [Kerens] 1 tab PO Q4H #40 tab rivaroxaban [Xarelto] 10 mg PO DAILY #14 tab DS: Summary - Time Spent with Patient Total time spent providing and/or coordinating discharge services: Exam Vital signs: Vital Signs 03/10/18 20:34 03/10/18 20:37 03/10/18 23:27 Temperature 98.7 F 98.2 F Pulse Rate 89 73 Respiratory Rate 18 18 18 Blood Pressure 142/77 H 92/60 L Pulse Oximetry 96 97 03/11/18 04:22 03/11/18 08:00 Temperature 98.2 F 97.8 F Pulse Rate 79 86 Respiratory Rate 18 18 Blood Pressure 121/63 105/61 Pulse Oximetry 96 92 L Intake & Output 03/10/18 03/11/18 03/11/18 18:59 06:59 18:59 Intake Total 1440 / 1440 360 / 360 Balance 1440 / 1440 360 / 360 Intake: Oral 1440 / 1440 360 / 360 Other: # Voids 10 1 Date of Last Bowel Movement 03/08/18 03/09/18 03/10/18 # Bowel Movements 0 Results - Impressions ITS Impressions Chest CT 03/05/18 00:00 CONCLUSION: 1. Right lower lobe consolidation and atelectasis. No obvious mass. 2. Follow-up CT examination in 6 months is recommended to ensure resolution of this finding. Tibia/Fibula X-Ray 03/07/18 00:00 CONCLUSION: Status post open rigid internal fixation. Chest X-Ray 03/11/18 08:55 CONCLUSION: Stable chest. <Karen Mackenzie - Last Filed: 04/09/18 20:54> Date of admission: 03/05/18 20:46 Primary care physician: Flavio Win DO Attending physician on discharge: Flavio Win Brief History from admission: [facility] for fractured Tibia DS: Diagnosis - Discharge Diagnosis (1) Closed tibia fracture Status: Acute (2) Pneumonia Status: Acute (3) Tobacco abuse Status: Acute (4) HLD (hyperlipidemia) Status: Acute (5) Hypothyroid Status: Acute DS: Summary Hospital Course: Presented with Left tibia fracture. Pulmonary consulted for Abnormal ABG and CT showing Right lower lobe consolidation and atelectasis. No obvious mass. Follow-up CT examination in 6 months is recommended to ensure resolution of this finding. Left tibia reduction and intramedullary nail fixation 03/07/1803/08- PFT Mild obstructive ventilatory defect with no significant improvement post-bronchodilator Psych consulted for Delirium Hx bipolar, medication stabilization. - Time Spent with Patient Total time spent providing and/or coordinating discharge services: 30 Less than 30 minutes - Quality: AMI Clinical Trial Participant: No - Quality: Stroke Symptom Onset Unknown: No - Quality: VTE Is this test being ordered to rule out VTE?: No Deep Vein Thrombosis/Pulmonary Embolism Present on Admission: No Exam Vital signs: Vital Signs 03/10/18 12:00 03/10/18 16:00 03/10/18 20:34 Temperature 99.4 F 98.2 F 98.7 F Pulse Rate 82 76 89 Respiratory Rate 17 18 18 Blood Pressure 109/59 L 117/58 L 142/77 H Pulse Oximetry 92 L 94 L 96 03/10/18 20:37 03/10/18 23:27 03/11/18 04:22 Temperature 98.2 F 98.2 F Pulse Rate 73 79 Respiratory Rate 18 18 18 Blood Pressure 92/60 L 121/63 Pulse Oximetry 97 96 Intake & Output 03/10/18 03/11/18 03/11/18 18:59 06:59 18:59 Intake Total 1440 / 1440 360 / 360 Balance 1440 / 1440 360 / 360 Intake: Oral 1440 / 1440 360 / 360 Other: # Voids 10 1 Date of Last Bowel Movement 03/08/18 03/09/18 # Bowel Movements 0 - Constitutional no acute distress - Routine HEENT Exam Head: Present: normocephalic ENT: Present: mucous membranes moist - Routine Neck Exam Present: supple - Routine Respiratory Exam Present: CTA bilaterally - Routine Cardiovascular Exam Present: RRR, S1, S2 - Routine Abdominal Exam Present: soft - Routine Extremities Exam Present: edema - Routine Skin Exam Present: intact Comments: Left tibia dressing C/D/I - Routine Neurological Exam Present: alert, oriented X3 - Routine Psychiatric Exam Present: cooperative Results Procedures completed during hospitalization: Left Tibia repair Completed studies during hospitalization: none - Impressions ITS Impressions Chest CT 03/05/18 00:00 CONCLUSION: 1. Right lower lobe consolidation and atelectasis. No obvious mass. 2. Follow-up CT examination in 6 months is recommended to ensure resolution of this finding. Chest X-Ray 03/05/18 20:39 CONCLUSION: Right lower lobe pulmonary opacity which may represent pneumonia in the proper clinical setting. Mass not excludable. CT of the chest, preferably with intravenous contrast is recommended. Tibia/Fibula X-Ray 03/07/18 00:00 CONCLUSION: Status post open rigid internal fixation. Discharge Plan - Discharge Order Discharge Orders: Discharge Order (Routine); Ordered 03/11/18 Ordered By: Karen Mackenzie - Physicians Team Primary Care Provider: Flavio Win Attending Provider: Flavio Win Other Providers: Sheila Sosa MD ; Hugo Cabrera MD ; Tigre Villa MD ; Jose M Tillman MD ; Van Nguyen MD ; Rl Hein MD ; [facility]
[2018-03-11] MEDS: Potassium Bicarbonate 25 MEQ Effervescent Tablet PO SCH (09:51)
--- NOTE | 2018-03-11 10:23 | XR ---
EXAM DATE: 03/11/2018 10:08 AM EDT AGE/SEX: 53 years / Female INDICATIONS: Chronic obstructive pulmonary disease. CLINICAL DATA: This is the patient's subsequent encounter. Patient reports that signs and symptoms h ave been present for 1 week and indicates a pain score of 8/10. MEDICAL/SURGICAL HISTORY: Chronic obstructive pulmonary disease. section. Tonsillecto my. Right patella. Right mastoid. COMPARISON: C, CHEST 1V SINGLE AP, 03/05/2018. . FINDINGS: Stable minimal bibasilar parenchymal changes worse on the right. The heart and pulmonary vascularity are normal. The portion of the bony skeleton visualized is unrema rkable. CONCLUSION: Stable chest. Electronically signed by: Hugo Lujan MD 03/11/2018 10:21 AM EDT
[2018-03-11 10:24] VITALS: BP 105/61; PULSE 86; TEMP 97.8; O2SAT 92
== END 2018-03-11 14:06 ==
LOC: NEPC 17:30 → NEDA 20:46 → H7ONC 23:46 → N06 03-08 16:09
PROVIDERS: ADMIT Family Medicine; ATTEND Family Medicine
PROC: ORIFTIB (2018-03-07 08:39)